=== PATIENT | female | born 1965 | race Caucasian/White ===

== ENCOUNTER 2020-01-21 09:50 | Outpatient (REF) | payer OTHER, SELFPAY ==
[2020-01-21 10:07] LABS: ALT 14 U/L (14-59); AST 14 U/L (15-37); Alkaline Phosphatase 72 U/L (46-116); Anion Gap 7.4 mmol/L (3-11); BUN 6 mg/dL (7-18); Bilirubin, Total 0.3 mg/dL (0.2-1.0); CO2 25.6 mmol/L (21.0-32.0); CREATININE 0.86 mg/dL (0.55-1.02); Calcium 8.4 mg/dL (8.5-10.1); Chloride 106 mmol/L (98-107); Glucose 90 mg/dL (74-106); Potassium 3.6 mmol/L (3.5-5.1); Sodium 139 mmol/L (136-145); Total Protein 6.3 g/dL (6.4-8.2)
== END 2020-01-21 10:10 ==
LOC: LBN 09:50
PROVIDERS: PCP Internal Medicine; Visit Provider Internal Medicine Medical Oncology
DX: C79.51 Secondary malignant neoplasm of bone (principal)
CPT/HCPCS: 80053

== ENCOUNTER 2020-02-18 01:36 | Outpatient (RCR) | payer OTHER, SELFPAY | END 2020-03-04 23:59 | disposition home or self-care (01) | LOC: INF 01:36 | PROVIDERS: PCP Internal Medicine; Visit Provider Internal Medicine Medical Oncology | DX: R69 Illness, unspecified (principal) ==

== ENCOUNTER 2020-02-18 09:28 | Outpatient (REF) | payer OTHER, SELFPAY ==
[2020-02-18 10:01] LABS: ALT 14 U/L (14-59); AST 16 U/L (15-37); Albumin 3.2 g/dL (3.4-5.0); Alkaline Phosphatase 66 U/L (46-116); Anion Gap 7.8 mmol/L (3-11); BUN 5 mg/dL (7-18); Bilirubin, Total 0.3 mg/dL (0.2-1.0); CO2 27.2 mmol/L (21.0-32.0); CREATININE 1.04 mg/dL (0.55-1.02); Calcium 8.9 mg/dL (8.5-10.1); Chloride 107 mmol/L (98-107); Estimated GFR 55.43 (mL/min/1.73m2); Glucose 105 mg/dL (74-106); Sodium 142 mmol/L (136-145); Total Protein 6.5 g/dL (6.4-8.2)
== END 2020-02-18 09:48 ==
LOC: LBN 09:28
PROVIDERS: PCP Internal Medicine; Visit Provider Internal Medicine Medical Oncology
DX: C79.51 Secondary malignant neoplasm of bone (principal)
CPT/HCPCS: 80053

== ENCOUNTER 2020-04-21 01:32 | Outpatient (RCR) | payer OTHER, SELFPAY ==
[2020-04-21 13:26] LABS: Abs Immature Grans 0.01 10^3/uL (0.0-0.06); Absolute Basophil Count 0.04 10^3/uL (0.0-0.2); Absolute Eosinophil Count 0.09 10^3/uL (0.0-0.7); Absolute Lymphocyte Count 1.04 10^3/uL (1.2-3.4); Absolute Monocyte Count 0.27 10^3/uL (0.1-0.8); Absolute Neutrophil Count 3.86 10^3/uL (1.2-6.7); Basophils % 0.8; Eosinophils % 1.7; HCT 36.4 % (36.0-46.0); HGB 12.3 g/dL (11.2-15.7); Immature Grans % 0.2; Lymphocytes % 19.6; MCH 36.7 pg (27.0-33.0); MCHC 33.8 % (32.0-36.0); MCV 108.7 fL (80-95); MPV 10.1 fL (8.0-11.0); Monocytes % 5.1; Neutrophils % 72.6; Nucleated RBC 0 %; Platelet Count 319 10^3/uL (130-400); RBC 3.35 10^6/uL (3.93-5.22); RDW 13.3 % (11.7-14.6); RDW-SD 53.7 fL; WBC 5.31 10^3/uL (4.4-10.8)
[2020-04-21 13:34] LABS: ALT 18 U/L (14-59); AST 26 U/L (15-37); Albumin 3.5 g/dL (3.4-5.0); Alkaline Phosphatase 74 U/L (46-116); Anion Gap 9.3 mmol/L (3-11); BUN 9 mg/dL (7-18); Bilirubin, Total 0.4 mg/dL (0.2-1.0); CO2 24.7 mmol/L (21.0-32.0); CREATININE 1.11 mg/dL (0.55-1.02); Calcium 9.1 mg/dL (8.5-10.1); Chloride 105 mmol/L (98-107); Estimated GFR 51.22 (mL/min/1.73m2); Glucose 122 mg/dL (74-106); Potassium 4.5 mmol/L (3.5-5.1); Sodium 139 mmol/L (136-145); Total Protein 7.1 g/dL (6.4-8.2)
[2020-04-21] MEDS: Normal Saline Flush 10 ML SYR IVP (14:05)
[2020-04-21 14:42] LABS: Diff Comment RBC Morph Reviewed; Macrocytosis 1+
== END 2020-05-05 23:59 | disposition home or self-care (01) ==
LOC: INF 01:32
PROVIDERS: PCP Internal Medicine; Visit Provider Internal Medicine Medical Oncology
DX: C50.812 Malignant neoplasm of overlapping sites of left female breast (principal); Z17.0 Estrogen receptor positive status [ER+]
CPT/HCPCS: 36415; 80053; 86304; 85025; 86300

== ENCOUNTER 2020-06-23 14:20 | Outpatient (CLI) | payer OTHER, SELFPAY ==
[2020-06-23 14:57] LABS: Abs Immature Grans 0.01 10^3/uL (0.0-0.06); Absolute Basophil Count 0.05 10^3/uL (0.0-0.2); Absolute Eosinophil Count 0.08 10^3/uL (0.0-0.7); Absolute Lymphocyte Count 1.12 10^3/uL (1.2-3.4); Absolute Monocyte Count 0.28 10^3/uL (0.1-0.8); Absolute Neutrophil Count 1.94 10^3/uL (1.2-6.7); Basophils % 1.4; Eosinophils % 2.3; HCT 36.3 % (36.0-46.0); HGB 12.3 g/dL (11.2-15.7); Immature Grans % 0.3; Lymphocytes % 32.2; MCH 35.9 pg (27.0-33.0); MCHC 33.9 % (32.0-36.0); MCV 105.8 fL (80-95); MPV 9.2 fL (8.0-11.0); Neutrophils % 55.8; Nucleated RBC 0 %; Platelet Count 251 10^3/uL (130-400); RBC 3.43 10^6/uL (3.93-5.22); RDW 14.3 % (11.7-14.6); RDW-SD 55.3 fL; WBC 3.48 10^3/uL (4.4-10.8)
[2020-06-23 15:11] LABS: Diff Comment RBC Morph Reviewed; Macrocytosis 1+
[2020-06-23 15:13] LABS: ALT 9 U/L (14-59); AST 14 U/L (15-37); Albumin 3.3 g/dL (3.4-5.0); Alkaline Phosphatase 111 U/L (46-116); BUN 6 mg/dL (7-18); Bilirubin, Total 0.4 mg/dL (0.2-1.0); CREATININE 0.81 mg/dL (0.55-1.02); Chloride 105 mmol/L (98-107); Glucose 99 mg/dL (74-106); Sodium 138 mmol/L (136-145); Total Protein 6.8 g/dL (6.4-8.2)
[2020-06-25 10:25] LABS: Cancer Ag 15-3 28 U/mL (<30)
== END 2020-06-23 14:40 ==
PROVIDERS: PCP Internal Medicine; Visit Provider Internal Medicine Medical Oncology
DX: C79.51 Secondary malignant neoplasm of bone (principal)
CPT/HCPCS: 36415; 80053; 86304; 85025; 86300

== ENCOUNTER 2020-07-28 02:46 | Outpatient (RCR) | payer OTHER, SELFPAY ==
[2020-07-28] MEDS: Normal Saline-STERILE FIELD 0.9% 10 ML SYR (13:20)
[2020-07-28 13:48] LABS: Abs Immature Grans 0.02 10^3/uL (0.0-0.06); Absolute Basophil Count 0.04 10^3/uL (0.0-0.2); Absolute Eosinophil Count 0.09 10^3/uL (0.0-0.7); Absolute Lymphocyte Count 1.07 10^3/uL (1.2-3.4); Absolute Monocyte Count 0.29 10^3/uL (0.1-0.8); Absolute Neutrophil Count 3.03 10^3/uL (1.2-6.7); Basophils % 0.9; HCT 37.5 % (36.0-46.0); HGB 12.7 g/dL (11.2-15.7); Immature Grans % 0.4; Lymphocytes % 23.6; MCH 35.6 pg (27.0-33.0); MCHC 33.9 % (32.0-36.0); MPV 9.5 fL (8.0-11.0); Monocytes % 6.4; Neutrophils % 66.7; Nucleated RBC 0 %; Platelet Count 250 10^3/uL (130-400); RBC 3.57 10^6/uL (3.93-5.22); RDW 14.8 % (11.7-14.6); RDW-SD 58.1 fL; WBC 4.54 10^3/uL (4.4-10.8)
[2020-07-28 14:03] LABS: ALT 13 U/L (14-59); AST 16 U/L (15-37); Albumin 3.6 g/dL (3.4-5.0); Alkaline Phosphatase 104 U/L (46-116); Anion Gap 10.5 mmol/L (3-11); BUN 8 mg/dL (7-18); Bilirubin, Total 0.3 mg/dL (0.2-1.0); CO2 24.5 mmol/L (21.0-32.0); CREATININE 1.03 mg/dL (0.55-1.02); Calcium 8.9 mg/dL (8.5-10.1); Chloride 104 mmol/L (98-107); Estimated GFR 55.84 (mL/min/1.73m2); Glucose 137 mg/dL (74-106); Potassium 3.6 mmol/L (3.5-5.1); Sodium 139 mmol/L (136-145); Total Protein 7.5 g/dL (6.4-8.2)
[2020-07-29 16:14] LABS: Cancer Ag 15-3 27 U/mL (<30)
== END 2020-08-04 23:59 | disposition home or self-care (01) ==
LOC: INF 02:46
PROVIDERS: PCP Internal Medicine; Visit Provider Internal Medicine Medical Oncology
DX: C50.812 Malignant neoplasm of overlapping sites of left female breast (principal); Z17.0 Estrogen receptor positive status [ER+]
CPT/HCPCS: 36415; 80053; 86304; 85025; 86300

== ENCOUNTER 2020-08-25 12:59 | Outpatient (RCR) | payer OTHER, SELFPAY ==
[2020-08-25 13:21] LABS: Abs Immature Grans 0.01 10^3/uL (0.0-0.06); Absolute Basophil Count 0.07 10^3/uL (0.0-0.2); Absolute Eosinophil Count 0.09 10^3/uL (0.0-0.7); Absolute Lymphocyte Count 1.32 10^3/uL (1.2-3.4); Absolute Monocyte Count 0.33 10^3/uL (0.1-0.8); Absolute Neutrophil Count 2.31 10^3/uL (1.2-6.7); Basophils % 1.7; Eosinophils % 2.2; HCT 37.1 % (36.0-46.0); HGB 12.5 g/dL (11.2-15.7); Immature Grans % 0.2; MCH 36.2 pg (27.0-33.0); MCHC 33.7 % (32.0-36.0); MCV 107.5 fL (80-95); MPV 9.5 fL (8.0-11.0); Neutrophils % 55.9; Nucleated RBC 0 %; Platelet Count 260 10^3/uL (130-400); RBC 3.45 10^6/uL (3.93-5.22); RDW 15.8 % (11.7-14.6); RDW-SD 62.8 fL; WBC 4.13 10^3/uL (4.4-10.8)
[2020-08-25 13:33] LABS: ALT 12 U/L (14-59); AST 15 U/L (15-37); Albumin 3.6 g/dL (3.4-5.0); Alkaline Phosphatase 97 U/L (46-116); BUN 6 mg/dL (7-18); Bilirubin, Total 0.3 mg/dL (0.2-1.0); CREATININE 1.01 mg/dL (0.55-1.02); Calcium 8.9 mg/dL (8.5-10.1); Chloride 105 mmol/L (98-107); Estimated GFR 57.12 (mL/min/1.73m2); Glucose 145 mg/dL (74-106); Sodium 140 mmol/L (136-145); Total Protein 7.3 g/dL (6.4-8.2)
[2020-08-25 13:42] LABS: Diff Comment Manual Differential; Macrocytosis 1+
[2020-08-26 16:08] LABS: Cancer Ag 15-3 30 U/mL (<30)
== END 2020-09-04 23:59 | disposition home or self-care (01) ==
LOC: INF 12:59
PROVIDERS: PCP Internal Medicine; Referring Provider Internal Medicine Medical Oncology; Visit Provider Internal Medicine Medical Oncology
DX: C50.812 Malignant neoplasm of overlapping sites of left female breast (principal); Z17.1 Estrogen receptor negative status [ER-]
CPT/HCPCS: 36415; 80053; 86304; 85025; 86300

== ENCOUNTER 2020-09-22 01:55 | Outpatient (RCR) | payer OTHER, SELFPAY ==
[2020-09-22 14:20] LABS: Abs Immature Grans 0.01 10^3/uL (0.0-0.06); Absolute Basophil Count 0.05 10^3/uL (0.0-0.2); Absolute Eosinophil Count 0.04 10^3/uL (0.0-0.7); Absolute Lymphocyte Count 1.01 10^3/uL (1.2-3.4); Absolute Monocyte Count 0.26 10^3/uL (0.1-0.8); Absolute Neutrophil Count 2.46 10^3/uL (1.2-6.7); Basophils % 1.3; HCT 35.9 % (36.0-46.0); HGB 12.4 g/dL (11.2-15.7); Immature Grans % 0.3; Lymphocytes % 26.4; MCH 36.9 pg (27.0-33.0); MCHC 34.5 % (32.0-36.0); MCV 106.8 fL (80-95); MPV 9.4 fL (8.0-11.0); Monocytes % 6.8; Neutrophils % 64.2; Nucleated RBC 0 %; Platelet Count 240 10^3/uL (130-400); RBC 3.36 10^6/uL (3.93-5.22); RDW 14.7 % (11.7-14.6); RDW-SD 58.5 fL; WBC 3.83 10^3/uL (4.4-10.8)
[2020-09-22 14:28] LABS: ALT 13 U/L (14-59); AST 14 U/L (15-37); Albumin 3.5 g/dL (3.4-5.0); Alkaline Phosphatase 89 U/L (46-116); BUN 10 mg/dL (7-18); Bilirubin, Total 0.4 mg/dL (0.2-1.0); CREATININE 0.93 mg/dL (0.55-1.02); Calcium 8.9 mg/dL (8.5-10.1); Chloride 103 mmol/L (98-107); Glucose 107 mg/dL (74-106); Potassium 3.8 mmol/L (3.5-5.1); Sodium 136 mmol/L (136-145); Total Protein 7.3 g/dL (6.4-8.2)
[2020-09-22] MEDS: Normal Saline-STERILE FIELD 0.9% 10 ML SYR (14:29)
[2020-09-23 15:14] LABS: Cancer Ag 15-3 30 U/mL (<30)
== END 2020-10-05 23:59 | disposition home or self-care (01) ==
LOC: INF 01:55
PROVIDERS: PCP Internal Medicine; Visit Provider Internal Medicine Medical Oncology
DX: C50.812 Malignant neoplasm of overlapping sites of left female breast (principal); Z17.0 Estrogen receptor positive status [ER+]
CPT/HCPCS: 36415; 80053; 86304; 85025; 86300

== ENCOUNTER 2020-10-21 01:00 | Outpatient (CLI) | payer OTHER, SELFPAY ==
--- NOTE | 2020-10-21 09:58 | DI.RAD_ITS ---
EXAM: XR HUMERUS LT CLINICAL HISTORY: F/U CLOSED FX PROXIMAL END OF HUMERUS,S42.S.COMPARE TO PREV FROM [facility] [place] TECHNIQUE: COMPARISON: DX XR HUMERUS LEFT (GENERIC) from 08/19/2020 FINDINGS: Two views were obtained and show mid humeral fracture with exuberant callus formation, there is a per sistent fracture plane. Alignment appears essentially unchanged comparison with prior radiographs fr om August 19 from [facility]. IMPRESSION: RADIATION DOSE DELIVERED: Total DLP
== END 2020-10-21 01:01 ==
LOC: DI 01:01
PROVIDERS: PCP Internal Medicine; Visit Provider Orthopaedic Surgery
DX: S42.292A Other displaced fracture of upper end of left humerus, initial encounter for closed fracture (principal)
CPT/HCPCS: 73060

== ENCOUNTER 2020-10-27 02:40 | Outpatient (RCR) | payer OTHER, SELFPAY ==
[2020-10-27] MEDS: Normal Saline-STERILE FIELD 0.9% 10 ML SYR (12:59)
[2020-10-27 13:02] LABS: Abs Immature Grans 0.03 10^3/uL (0.0-0.06); Absolute Basophil Count 0.07 10^3/uL (0.0-0.2); Absolute Eosinophil Count 0.07 10^3/uL (0.0-0.7); Absolute Lymphocyte Count 1.07 10^3/uL (1.2-3.4); Absolute Monocyte Count 0.37 10^3/uL (0.1-0.8); Absolute Neutrophil Count 3.07 10^3/uL (1.2-6.7); Basophils % 1.5; Eosinophils % 1.5; HCT 35.6 % (36.0-46.0); HGB 11.9 g/dL (11.2-15.7); Immature Grans % 0.6; Lymphocytes % 22.9; MCH 36.6 pg (27.0-33.0); MCHC 33.4 % (32.0-36.0); MCV 109.5 fL (80-95); MPV 9.8 fL (8.0-11.0); Monocytes % 7.9; Neutrophils % 65.6; Nucleated RBC 0 %; Platelet Count 263 10^3/uL (130-400); RBC 3.25 10^6/uL (3.93-5.22); RDW-SD 60.5 fL; WBC 4.68 10^3/uL (4.4-10.8)
[2020-10-27 13:31] LABS: ALT 14 U/L (14-59); AST 10 U/L (15-37); Albumin 3.4 g/dL (3.4-5.0); Alkaline Phosphatase 76 U/L (46-116); Anion Gap 11.7 mmol/L (3-11); BUN 12 mg/dL (7-18); Bilirubin, Total 0.2 mg/dL (0.2-1.0); CO2 25.3 mmol/L (21.0-32.0); Calcium 9.1 mg/dL (8.5-10.1); Chloride 104 mmol/L (98-107); Estimated GFR 57.78 (mL/min/1.73m2); Glucose 104 mg/dL (74-106); Potassium 3.7 mmol/L (3.5-5.1); Sodium 141 mmol/L (136-145); Total Protein 7.3 g/dL (6.4-8.2)
[2020-10-29 12:36] LABS: Cancer Ag 15-3 26 U/mL (<30)
== END 2020-11-02 23:59 | disposition home or self-care (01) ==
LOC: INF 02:40
PROVIDERS: PCP Internal Medicine; Visit Provider Internal Medicine Medical Oncology
DX: C50.812 Malignant neoplasm of overlapping sites of left female breast (principal); Z17.0 Estrogen receptor positive status [ER+]
CPT/HCPCS: 36415; 80053; 86304; 85025; 86300

== ENCOUNTER 2020-11-24 03:01 | Outpatient (RCR) | payer OTHER, SELFPAY ==
[2020-11-24] MEDS: Normal Saline-STERILE FIELD 0.9% 10 ML SYR (13:08)
[2020-11-24 13:11] LABS: Abs Immature Grans 0.02 10^3/uL (0.0-0.06); Absolute Basophil Count 0.05 10^3/uL (0.0-0.2); Absolute Eosinophil Count 0.07 10^3/uL (0.0-0.7); Absolute Lymphocyte Count 1.31 10^3/uL (1.2-3.4); Absolute Monocyte Count 0.31 10^3/uL (0.1-0.8); Absolute Neutrophil Count 2.22 10^3/uL (1.2-6.7); Basophils % 1.3; Eosinophils % 1.8; HCT 35.1 % (36.0-46.0); Immature Grans % 0.5; Lymphocytes % 32.9; MCH 36.6 pg (27.0-33.0); MCHC 34.2 % (32.0-36.0); Monocytes % 7.8; Neutrophils % 55.7; Nucleated RBC 0 %; Platelet Count 238 10^3/uL (130-400); RBC 3.28 10^6/uL (3.93-5.22); RDW 14.4 % (11.7-14.6); WBC 3.98 10^3/uL (4.4-10.8)
[2020-11-24 13:23] LABS: ALT 15 U/L (14-59); AST 13 U/L (15-37); Albumin 3.6 g/dL (3.4-5.0); Alkaline Phosphatase 85 U/L (46-116); Anion Gap 11.9 mmol/L (3-11); BUN 9 mg/dL (7-18); Bilirubin, Total 0.3 mg/dL (0.2-1.0); CO2 25.1 mmol/L (21.0-32.0); CREATININE 0.9 mg/dL (0.55-1.02); Chloride 106 mmol/L (98-107); Glucose 91 mg/dL (74-106); Potassium 3.6 mmol/L (3.5-5.1); Sodium 143 mmol/L (136-145); Total Protein 7.5 g/dL (6.4-8.2)
[2020-11-24 13:28] LABS: Diff Comment RBC Morph Reviewed; Macrocytosis 1+
[2020-11-25 16:16] LABS: Cancer Ag 15-3 30 U/mL (<30)
== END 2020-12-03 23:59 | disposition home or self-care (01) ==
LOC: INF 03:01
PROVIDERS: PCP Internal Medicine; Visit Provider Internal Medicine Medical Oncology
DX: C50.812 Malignant neoplasm of overlapping sites of left female breast (principal); Z17.0 Estrogen receptor positive status [ER+]
CPT/HCPCS: 36415; 80053; 86304; 85025; 86300

== ENCOUNTER 2020-12-25 03:13 | Outpatient (RCR) | payer OTHER, SELFPAY ==
[2020-12-25] MEDS: Normal Saline-STERILE FIELD 0.9% 10 ML SYR (13:18)
[2020-12-25 13:27] LABS: Absolute Basophil Count 0.06 10^3/uL (0.0-0.2); HCT 32.1 % (36.0-46.0); HGB 10.8 g/dL (11.2-15.7); MCH 36.2 pg (27.0-33.0); MCHC 33.6 % (32.0-36.0); MCV 107.7 fL (80-95); MPV 9.6 fL (8.0-11.0); Nucleated RBC 0 %; RBC 2.98 10^6/uL (3.93-5.22); RDW 15.3 % (11.7-14.6); RDW-SD 60.9 fL; WBC 3.06 10^3/uL (4.4-10.8)
[2020-12-25 13:46] LABS: ALT 14 U/L (14-59); AST 14 U/L (15-37); Albumin 3.6 g/dL (3.4-5.0); Alkaline Phosphatase 60 U/L (46-116); Anion Gap 7.5 mmol/L (3-11); BUN 11 mg/dL (7-18); Bilirubin, Total 0.3 mg/dL (0.2-1.0); CO2 27.5 mmol/L (21.0-32.0); CREATININE 0.9 mg/dL (0.55-1.02); Chloride 108 mmol/L (98-107); Glucose 85 mg/dL (74-106); Potassium 3.6 mmol/L (3.5-5.1); Sodium 143 mmol/L (136-145)
[2020-12-25 14:01] LABS: Absolute Monocyte Count 0.31 10^3/uL (0.1-0.8); Absolute Neutrophil Count 1.87 10^3/uL (1.2-6.7); Atypical Lymphocytes % 4; Bands % 1; Platelet Count 227 10^3/uL (130-400)
[2020-12-25 14:02] LABS: Absolute Eosinophil Count 0.03 10^3/uL (0.0-0.7); Diff Comment Manual Differential; Macrocytosis 2+
[2020-12-26 16:03] LABS: Cancer Ag 15-3 25 U/mL (<30)
== END 2021-01-02 23:59 | disposition home or self-care (01) ==
LOC: INF 03:13
PROVIDERS: PCP Internal Medicine; Visit Provider Internal Medicine Medical Oncology
DX: C50.812 Malignant neoplasm of overlapping sites of left female breast (principal); Z17.0 Estrogen receptor positive status [ER+]
CPT/HCPCS: 36415; 80053; 86304; 85025; 86300

== ENCOUNTER 2021-01-20 09:57 | Outpatient (RCR) | payer OTHER, SELFPAY ==
[2021-01-20] MEDS: Normal Saline-STERILE FIELD 0.9% 10 ML SYR (10:40)
[2021-01-20 10:47] LABS: Abs Immature Grans 0.02 10^3/uL (0.0-0.06); Absolute Basophil Count 0.08 10^3/uL (0.0-0.2); Absolute Eosinophil Count 0.07 10^3/uL (0.0-0.7); Absolute Lymphocyte Count 1.04 10^3/uL (1.2-3.4); Absolute Monocyte Count 0.26 10^3/uL (0.1-0.8); Absolute Neutrophil Count 2.16 10^3/uL (1.2-6.7); Basophils % 2.2; Eosinophils % 1.9; HCT 34.8 % (36.0-46.0); HGB 11.5 g/dL (11.2-15.7); Immature Grans % 0.6; Lymphocytes % 28.7; MCH 35.9 pg (27.0-33.0); MPV 9.9 fL (8.0-11.0); Monocytes % 7.2; Neutrophils % 59.4; Nucleated RBC 0 %; Platelet Count 273 10^3/uL (130-400); RDW 15.2 % (11.7-14.6); RDW-SD 61.3 fL; WBC 3.63 10^3/uL (4.4-10.8)
[2021-01-20 10:50] LABS: MCV 108.8 fL (80-95)
[2021-01-20 11:03] LABS: ALT 13 U/L (14-59); AST 15 U/L (15-37); Albumin 3.6 g/dL (3.4-5.0); Alkaline Phosphatase 72 U/L (46-116); Anion Gap 10.4 mmol/L (3-11); BUN 7 mg/dL (7-18); Bilirubin, Total 0.2 mg/dL (0.2-1.0); CO2 25.6 mmol/L (21.0-32.0); CREATININE 0.9 mg/dL (0.55-1.02); Chloride 107 mmol/L (98-107); Glucose 92 mg/dL (74-106); Potassium 3.5 mmol/L (3.5-5.1); Sodium 143 mmol/L (136-145); Total Protein 7.5 g/dL (6.4-8.2)
[2021-01-21 17:15] LABS: Cancer Ag 15-3 29 U/mL (<30)
== END 2021-02-02 23:59 | disposition home or self-care (01) ==
LOC: INF 09:57
PROVIDERS: PCP Internal Medicine Medical Oncology; Visit Provider Internal Medicine Medical Oncology
DX: C50.812 Malignant neoplasm of overlapping sites of left female breast (principal); Z17.0 Estrogen receptor positive status [ER+]
CPT/HCPCS: 36415; 80053; 86304; 85025; 86300

== ENCOUNTER 2021-02-20 02:55 | Outpatient (CLI) | payer OTHER, SELFPAY ==
[2021-02-20 13:05] LABS: Abs Immature Grans 0.02 10^3/uL (0.0-0.06); Absolute Basophil Count 0.06 10^3/uL (0.0-0.2); Absolute Eosinophil Count 0.08 10^3/uL (0.0-0.7); Absolute Lymphocyte Count 0.91 10^3/uL (1.2-3.4); Absolute Monocyte Count 0.23 10^3/uL (0.1-0.8); Absolute Neutrophil Count 1.74 10^3/uL (1.2-6.7); Eosinophils % 2.6; HCT 36.2 % (36.0-46.0); HGB 12.2 g/dL (11.2-15.7); Immature Grans % 0.7; Lymphocytes % 29.9; MCH 36.2 pg (27.0-33.0); MCHC 33.7 % (32.0-36.0); MCV 107.4 fL (80-95); MPV 8.6 fL (8.0-11.0); Monocytes % 7.6; Neutrophils % 57.2; Nucleated RBC 0 %; Platelet Count 220 10^3/uL (130-400); RBC 3.37 10^6/uL (3.93-5.22); RDW 14.5 % (11.7-14.6); WBC 3.04 10^3/uL (4.4-10.8)
[2021-02-20 13:26] LABS: Diff Comment RBC Morph Reviewed; Macrocytosis 1+
[2021-02-20 14:30] LABS: ALT 14 U/L (14-59); AST 16 U/L (15-37); Albumin 3.6 g/dL (3.4-5.0); Alkaline Phosphatase 65 U/L (46-116); Anion Gap 14.3 mmol/L (3-11); BUN 5 mg/dL (7-18); Bilirubin, Total 0.3 mg/dL (0.2-1.0); CO2 22.7 mmol/L (21.0-32.0); CREATININE 0.8 mg/dL (0.55-1.02); Calcium 8.8 mg/dL (8.5-10.1); Chloride 106 mmol/L (98-107); Glucose 112 mg/dL (74-106); Potassium 3.7 mmol/L (3.5-5.1); Sodium 143 mmol/L (136-145); Total Protein 7.1 g/dL (6.4-8.2)
[2021-02-23 10:47] LABS: Cancer Ag 15-3 29 U/mL (<30)
== END 2021-02-20 02:56 | disposition home or self-care (01) ==
LOC: LBO 02:55
PROVIDERS: PCP Internal Medicine Medical Oncology; Visit Provider Internal Medicine Medical Oncology
DX: C50.812 Malignant neoplasm of overlapping sites of left female breast (principal); Z17.0 Estrogen receptor positive status [ER+]; C79.51 Secondary malignant neoplasm of bone
CPT/HCPCS: 36415; 80053; 86304; 85025; 86300

== ENCOUNTER 2021-03-27 12:57 | Outpatient (CLI) | payer OTHER, SELFPAY ==
[2021-03-27 13:22] LABS: Abs Immature Grans 0.01 10^3/uL (0.0-0.06); Absolute Basophil Count 0.06 10^3/uL (0.0-0.2); Absolute Eosinophil Count 0.03 10^3/uL (0.0-0.7); Absolute Lymphocyte Count 1.07 10^3/uL (1.2-3.4); Absolute Monocyte Count 0.27 10^3/uL (0.1-0.8); Absolute Neutrophil Count 1.37 10^3/uL (1.2-6.7); Basophils % 2.1; Eosinophils % 1.1; HCT 32.7 % (36.0-46.0); HGB 10.9 g/dL (11.2-15.7); Immature Grans % 0.4; Lymphocytes % 38.1; MCH 37.8 pg (27.0-33.0); MCHC 33.3 % (32.0-36.0); MCV 113.5 fL (80-95); MPV 9.7 fL (8.0-11.0); Monocytes % 9.6; Neutrophils % 48.7; Nucleated RBC 0 %; Platelet Count 201 10^3/uL (130-400); RBC 2.88 10^6/uL (3.93-5.22); RDW 16.5 % (11.7-14.6); RDW-SD 69.2 fL; WBC 2.81 10^3/uL (4.4-10.8)
[2021-03-27 13:33] LABS: ALT 15 U/L (14-59); AST 16 U/L (15-37); Albumin 3.6 g/dL (3.4-5.0); Alkaline Phosphatase 49 U/L (46-116); Anion Gap 7.9 mmol/L (3-11); BUN 9 mg/dL (7-18); Bilirubin, Total 0.3 mg/dL (0.2-1.0); CO2 28.1 mmol/L (21.0-32.0); CREATININE 0.8 mg/dL (0.55-1.02); Chloride 107 mmol/L (98-107); Glucose 86 mg/dL (74-106); Potassium 3.6 mmol/L (3.5-5.1); Sodium 143 mmol/L (136-145); Total Protein 7.1 g/dL (6.4-8.2)
[2021-03-27 13:56] LABS: Anisocytosis 1+; Diff Comment Diff Reviewed; Macrocytosis 2+
[2021-03-30 10:38] LABS: Cancer Ag 15-3 31 U/mL (<30)
== END 2021-03-27 12:58 | disposition home or self-care (01) ==
PROVIDERS: PCP Internal Medicine Medical Oncology; Visit Provider Internal Medicine Medical Oncology
DX: C50.812 Malignant neoplasm of overlapping sites of left female breast (principal); Z17.0 Estrogen receptor positive status [ER+]
CPT/HCPCS: 36415; 80053; 86304; 85025; 86300

== ENCOUNTER 2021-04-24 02:16 | Outpatient (CLI) | payer OTHER, SELFPAY ==
[2021-04-24 12:49] LABS: Abs Immature Grans 0.01 10^3/uL (0.0-0.06); Absolute Basophil Count 0.05 10^3/uL (0.0-0.2); Absolute Eosinophil Count 0.06 10^3/uL (0.0-0.7); Absolute Lymphocyte Count 1.31 10^3/uL (1.2-3.4); Absolute Monocyte Count 0.31 10^3/uL (0.1-0.8); Absolute Neutrophil Count 1.68 10^3/uL (1.2-6.7); Basophils % 1.5; Eosinophils % 1.8; HCT 32.1 % (36.0-46.0); Immature Grans % 0.3; Lymphocytes % 38.3; MCH 37.8 pg (27.0-33.0); MCHC 34.3 % (32.0-36.0); MCV 110.3 fL (80-95); MPV 9.9 fL (8.0-11.0); Monocytes % 9.1; Nucleated RBC 0 %; Platelet Count 199 10^3/uL (130-400); RBC 2.91 10^6/uL (3.93-5.22); RDW 15.5 % (11.7-14.6); RDW-SD 62.8 fL; WBC 3.42 10^3/uL (4.4-10.8)
[2021-04-24 13:10] LABS: ALT 15 U/L (14-59); AST 20 U/L (15-37); Albumin 3.7 g/dL (3.4-5.0); Alkaline Phosphatase 63 U/L (46-116); BUN 6 mg/dL (7-18); Bilirubin, Total 0.4 mg/dL (0.2-1.0); CREATININE 0.9 mg/dL (0.55-1.02); Calcium 9.2 mg/dL (8.5-10.1); Chloride 107 mmol/L (98-107); Glucose 90 mg/dL (74-106); Potassium 3.3 mmol/L (3.5-5.1); Total Protein 7.1 g/dL (6.4-8.2)
[2021-04-24 13:39] LABS: Sodium 142 mmol/L (136-145)
[2021-04-24 13:40] LABS: Anion Gap 9.1 mmol/L (3-11); CO2 25.9 mmol/L (21.0-32.0)
[2021-04-27 14:09] LABS: Cancer Ag 15-3 32 U/mL (<30)
== END 2021-04-24 02:17 | disposition home or self-care (01) ==
LOC: LBO 02:17
PROVIDERS: PCP Internal Medicine Medical Oncology; Visit Provider Internal Medicine Medical Oncology
DX: C50.812 Malignant neoplasm of overlapping sites of left female breast (principal); C79.51 Secondary malignant neoplasm of bone; Z17.0 Estrogen receptor positive status [ER+]
CPT/HCPCS: 36415; 80053; 86304; 85025; 86300

== ENCOUNTER 2021-07-10 03:48 | Outpatient (CLI) | payer OTHER, SELFPAY ==
[2021-07-10 12:43] LABS: Abs Immature Grans 0.02 10^3/uL (0.0-0.06); Absolute Basophil Count 0.07 10^3/uL (0.0-0.2); Absolute Eosinophil Count 0.09 10^3/uL (0.0-0.7); Absolute Lymphocyte Count 1.27 10^3/uL (1.2-3.4); Absolute Monocyte Count 0.31 10^3/uL (0.1-0.8); Absolute Neutrophil Count 2.15 10^3/uL (1.2-6.7); Basophils % 1.8; Eosinophils % 2.3; HCT 35.5 % (36.0-46.0); HGB 11.9 g/dL (11.2-15.7); Immature Grans % 0.5; Lymphocytes % 32.5; MCH 37.4 pg (27.0-33.0); MCHC 33.5 % (32.0-36.0); MCV 111.6 fL (80-95); MPV 9.4 fL (8.0-11.0); Monocytes % 7.9; Nucleated RBC 0 %; Platelet Count 234 10^3/uL (130-400); RBC 3.18 10^6/uL (3.93-5.22); WBC 3.91 10^3/uL (4.4-10.8)
[2021-07-10 12:56] LABS: ALT 18 U/L (14-59); AST 20 U/L (15-37); Albumin 3.8 g/dL (3.4-5.0); Alkaline Phosphatase 70 U/L (46-116); Anion Gap 8.3 mmol/L (3-11); BUN 12 mg/dL (7-18); Bilirubin, Total 0.4 mg/dL (0.2-1.0); CO2 27.7 mmol/L (21.0-32.0); Calcium 9.2 mg/dL (8.5-10.1); Chloride 106 mmol/L (98-107); Estimated GFR 57.56 (mL/min/1.73m2); Glucose 133 mg/dL (74-106); Potassium 3.6 mmol/L (3.5-5.1); Sodium 142 mmol/L (136-145); Total Protein 7.7 g/dL (6.4-8.2)
[2021-07-14 10:56] LABS: Cancer Ag 15-3 32 U/mL (<30)
== END 2021-07-10 03:49 | disposition home or self-care (01) ==
LOC: LBO 03:48
PROVIDERS: PCP Internal Medicine Medical Oncology; Visit Provider Internal Medicine Medical Oncology
DX: C50.812 Malignant neoplasm of overlapping sites of left female breast (principal); C79.51 Secondary malignant neoplasm of bone; Z17.0 Estrogen receptor positive status [ER+]
CPT/HCPCS: 36415; 80053; 86304; 85025; 86300

== ENCOUNTER 2021-08-07 02:21 | Outpatient (CLI) | payer OTHER, SELFPAY ==
[2021-08-07 12:54] LABS: Abs Immature Grans 0.01 10^3/uL (0.0-0.06); Absolute Basophil Count 0.07 10^3/uL (0.0-0.2); Absolute Eosinophil Count 0.07 10^3/uL (0.0-0.7); Absolute Monocyte Count 0.28 10^3/uL (0.1-0.8); Absolute Neutrophil Count 1.73 10^3/uL (1.2-6.7); Basophils % 2.1; Eosinophils % 2.1; Immature Grans % 0.3; Lymphocytes % 35.7; MCH 36.8 pg (27.0-33.0); MCHC 33.3 % (32.0-36.0); MCV 110.4 fL (80-95); MPV 9.3 fL (8.0-11.0); Monocytes % 8.3; Neutrophils % 51.5; Nucleated RBC 0 %; Platelet Count 195 10^3/uL (130-400); RBC 3.26 10^6/uL (3.93-5.22); RDW 13.4 % (11.7-14.6); RDW-SD 54.4 fL; WBC 3.36 10^3/uL (4.4-10.8)
[2021-08-07 13:36] LABS: ALT 16 U/L (14-59); AST 19 U/L (15-37); Albumin 3.8 g/dL (3.4-5.0); Alkaline Phosphatase 70 U/L (46-116); Anion Gap 10.4 mmol/L (3-11); BUN 9 mg/dL (7-18); Bilirubin, Total 0.4 mg/dL (0.2-1.0); CO2 25.6 mmol/L (21.0-32.0); CREATININE 0.8 mg/dL (0.55-1.02); Calcium 8.9 mg/dL (8.5-10.1); Chloride 104 mmol/L (98-107); Glucose 98 mg/dL (74-106); Potassium 3.6 mmol/L (3.5-5.1); Sodium 140 mmol/L (136-145); Total Protein 7.7 g/dL (6.4-8.2)
[2021-08-08 12:03] LABS: Cancer Ag 15-3 34 U/mL (<30)
== END 2021-08-07 02:22 | disposition home or self-care (01) ==
LOC: LBO 02:22
PROVIDERS: PCP Internal Medicine Medical Oncology; Visit Provider Internal Medicine Medical Oncology
DX: C50.812 Malignant neoplasm of overlapping sites of left female breast (principal); C79.51 Secondary malignant neoplasm of bone
CPT/HCPCS: 36415; 80053; 86304; 85025; 86300

== ENCOUNTER 2021-09-16 16:40 | Outpatient (CLI) | payer OTHER, SELFPAY ==
[2021-09-16 12:46] LABS: Abs Immature Grans 0.02 10^3/uL (0.0-0.06); Absolute Basophil Count 0.08 10^3/uL (0.0-0.2); Absolute Eosinophil Count 0.04 10^3/uL (0.0-0.7); Absolute Lymphocyte Count 1.14 10^3/uL (1.2-3.4); Absolute Monocyte Count 0.27 10^3/uL (0.1-0.8); Absolute Neutrophil Count 1.96 10^3/uL (1.2-6.7); Basophils % 2.3; Eosinophils % 1.1; HCT 37.3 % (36.0-46.0); HGB 12.4 g/dL (11.2-15.7); Immature Grans % 0.6; Lymphocytes % 32.5; MCH 36.3 pg (27.0-33.0); MCHC 33.2 % (32.0-36.0); MCV 109.1 fL (80-95); MPV 9.4 fL (8.0-11.0); Monocytes % 7.7; Neutrophils % 55.8; Nucleated RBC 0 %; Platelet Count 227 10^3/uL (130-400); RBC 3.42 10^6/uL (3.93-5.22); RDW 13.5 % (11.7-14.6); RDW-SD 54.2 fL; WBC 3.51 10^3/uL (4.4-10.8)
[2021-09-16 13:01] LABS: ALT 16 U/L (14-59); AST 16 U/L (15-37); Albumin 3.8 g/dL (3.4-5.0); Alkaline Phosphatase 73 U/L (46-116); Anion Gap 8.9 mmol/L (3-11); BUN 11 mg/dL (7-18); Bilirubin, Total 0.3 mg/dL (0.2-1.0); CO2 28.1 mmol/L (21.0-32.0); Chloride 102 mmol/L (98-107); Estimated GFR 57.56 (mL/min/1.73m2); Glucose 100 mg/dL (74-106); Potassium 3.9 mmol/L (3.5-5.1); Sodium 139 mmol/L (136-145); Total Protein 7.8 g/dL (6.4-8.2)
[2021-09-16 13:05] LABS: Calcium 9.5 mg/dL (8.5-10.1)
[2021-09-18 10:20] LABS: Cancer Ag 15-3 35 U/mL (<30)
== END 2021-09-16 16:41 | disposition home or self-care (01) ==
LOC: LBO 16:40
PROVIDERS: PCP Internal Medicine Medical Oncology; Visit Provider Internal Medicine Medical Oncology
DX: C50.812 Malignant neoplasm of overlapping sites of left female breast (principal); C79.51 Secondary malignant neoplasm of bone
CPT/HCPCS: 36415; 80053; 86304; 85025; 86300

== ENCOUNTER 2021-11-12 02:31 | Outpatient (CLI) | payer OTHER, SELFPAY ==
[2021-11-12 12:42] LABS: Absolute Basophil Count 0.06 10^3/uL (0.0-0.2); Absolute Eosinophil Count 0.06 10^3/uL (0.0-0.7); Absolute Lymphocyte Count 1.15 10^3/uL (1.2-3.4); Absolute Monocyte Count 0.27 10^3/uL (0.1-0.8); Basophils % 1.9; Eosinophils % 1.9; HGB 10.9 g/dL (11.2-15.7); Lymphocytes % 36.6; MCH 36.3 pg (27.0-33.0); MPV 9.3 fL (8.0-11.0); Monocytes % 8.6; Nucleated RBC 0 %; Platelet Count 202 10^3/uL (130-400); RDW 13.2 % (11.7-14.6); RDW-SD 53.8 fL; WBC 3.14 10^3/uL (4.4-10.8)
[2021-11-12 13:03] LABS: ALT 13 U/L (14-59); AST 16 U/L (15-37); Albumin 3.7 g/dL (3.4-5.0); Alkaline Phosphatase 74 U/L (46-116); Anion Gap 9.3 mmol/L (3-11); BUN 7 mg/dL (7-18); Bilirubin, Total 0.2 mg/dL (0.2-1.0); CO2 26.7 mmol/L (21.0-32.0); CREATININE 0.9 mg/dL (0.55-1.02); Calcium 9.3 mg/dL (8.5-10.1); Chloride 105 mmol/L (98-107); Glucose 113 mg/dL (74-106); Potassium 3.5 mmol/L (3.5-5.1); Sodium 141 mmol/L (136-145); Total Protein 7.3 g/dL (6.4-8.2)
[2021-11-13 14:32] LABS: Cancer Ag 15-3 30 U/mL (<30)
== END 2021-11-12 02:32 | disposition home or self-care (01) ==
PROVIDERS: PCP Internal Medicine Medical Oncology; Visit Provider Internal Medicine Medical Oncology
DX: C50.812 Malignant neoplasm of overlapping sites of left female breast (principal); C79.51 Secondary malignant neoplasm of bone
CPT/HCPCS: 36415; 80053; 86304; 85025; 86300

== ENCOUNTER 2021-12-11 02:52 | Outpatient (CLI) | payer OTHER, SELFPAY ==
[2021-12-11 14:04] LABS: ALT 17 U/L (14-59); AST 16 U/L (15-37); Albumin 3.6 g/dL (3.4-5.0); Alkaline Phosphatase 77 U/L (46-116); BUN 13 mg/dL (7-18); Bilirubin, Total 0.2 mg/dL (0.2-1.0); Calcium 9.1 mg/dL (8.5-10.1); Chloride 106 mmol/L (98-107); Estimated GFR 57.56 (mL/min/1.73m2); Glucose 122 mg/dL (74-106); Potassium 3.6 mmol/L (3.5-5.1); Sodium 140 mmol/L (136-145); Total Protein 7.4 g/dL (6.4-8.2)
[2021-12-14 12:19] LABS: Cancer Ag 15-3 32 U/mL (<30)
== END 2021-12-11 02:53 | disposition home or self-care (01) ==
LOC: LBO 02:52
PROVIDERS: PCP Internal Medicine Medical Oncology; Visit Provider Internal Medicine Medical Oncology
DX: C50.812 Malignant neoplasm of overlapping sites of left female breast (principal); C79.51 Secondary malignant neoplasm of bone; M79.604 Pain in right leg; Z17.0 Estrogen receptor positive status [ER+]
CPT/HCPCS: 36415; 80053; 86304; 86300

== ENCOUNTER 2022-01-07 03:43 | Outpatient (CLI) | payer OTHER, SELFPAY ==
[2022-01-07 13:23] LABS: Abs Immature Grans 0.02 10^3/uL (0.0-0.06); Absolute Basophil Count 0.07 10^3/uL (0.0-0.2); Absolute Eosinophil Count 0.07 10^3/uL (0.0-0.7); Absolute Lymphocyte Count 1.32 10^3/uL (1.2-3.4); Absolute Monocyte Count 0.33 10^3/uL (0.1-0.8); Absolute Neutrophil Count 1.42 10^3/uL (1.2-6.7); Basophils % 2.2; Eosinophils % 2.2; HCT 33.7 % (36.0-46.0); HGB 11.1 g/dL (11.2-15.7); Immature Grans % 0.6; Lymphocytes % 40.9; MCH 35.8 pg (27.0-33.0); MCHC 32.9 % (32.0-36.0); MCV 109 fL (80-95); MPV 9.3 fL (8.0-11.0); Monocytes % 10.2; Neutrophils % 43.9; Platelet Count 198 10^3/uL (130-400); RDW 13.9 % (11.7-14.6); RDW-SD 55.4 fL; WBC 3.23 10^3/uL (4.4-10.8)
[2022-01-07 13:32] LABS: Diff Comment RBC Morph Reviewed
[2022-01-07 13:34] LABS: Macrocytosis 1+
[2022-01-07 13:36] LABS: ALT 14 U/L (14-59); AST 18 U/L (15-37); Albumin 3.5 g/dL (3.4-5.0); Alkaline Phosphatase 85 U/L (46-116); Anion Gap 6.4 mmol/L (3-11); BUN 11 mg/dL (7-18); Bilirubin, Total 0.3 mg/dL (0.2-1.0); CO2 27.6 mmol/L (21.0-32.0); CREATININE 0.9 mg/dL (0.55-1.02); Calcium 8.7 mg/dL (8.5-10.1); Chloride 106 mmol/L (98-107); Glucose 90 mg/dL (74-106); Potassium 3.7 mmol/L (3.5-5.1); Sodium 140 mmol/L (136-145); Total Protein 7.1 g/dL (6.4-8.2)
[2022-01-08 12:26] LABS: Cancer Ag 15-3 32 U/mL (<30)
== END 2022-01-07 03:44 | disposition home or self-care (01) ==
LOC: LBO 03:43
PROVIDERS: PCP Internal Medicine Medical Oncology; Visit Provider Internal Medicine Medical Oncology
DX: C50.812 Malignant neoplasm of overlapping sites of left female breast (principal); Z17.0 Estrogen receptor positive status [ER+]
CPT/HCPCS: 36415; 80053; 86304; 85025; 86300

== ENCOUNTER 2022-02-04 02:55 | Outpatient (CLI) | payer OTHER, SELFPAY ==
[2022-02-04 13:37] LABS: Abs Immature Grans 0.02 10^3/uL (0.0-0.06); Absolute Basophil Count 0.06 10^3/uL (0.0-0.2); Absolute Eosinophil Count 0.09 10^3/uL (0.0-0.7); Absolute Monocyte Count 0.26 10^3/uL (0.1-0.8); Absolute Neutrophil Count 1.72 10^3/uL (1.2-6.7); Basophils % 1.7; Eosinophils % 2.6; HCT 34.5 % (36.0-46.0); HGB 11.5 g/dL (11.2-15.7); Immature Grans % 0.6; Lymphocytes % 37.7; MCH 36.1 pg (27.0-33.0); MCHC 33.3 % (32.0-36.0); MCV 108 fL (80-95); MPV 9.6 fL (8.0-11.0); Monocytes % 7.5; Neutrophils % 49.9; Platelet Count 199 10^3/uL (130-400); RBC 3.19 10^6/uL (3.93-5.22); RDW 14.4 % (11.7-14.6); RDW-SD 57.3 fL; WBC 3.45 10^3/uL (4.4-10.8)
[2022-02-04 13:56] LABS: ALT 18 U/L (14-59); AST 19 U/L (15-37); Albumin 3.5 g/dL (3.4-5.0); Alkaline Phosphatase 80 U/L (46-116); Anion Gap 10.7 mmol/L (3-11); BUN 6 mg/dL (7-18); Bilirubin, Total 0.4 mg/dL (0.2-1.0); CO2 27.3 mmol/L (21.0-32.0); CREATININE 0.9 mg/dL (0.55-1.02); Calcium 8.7 mg/dL (8.5-10.1); Chloride 105 mmol/L (98-107); Glucose 134 mg/dL (74-106); Potassium 3.5 mmol/L (3.5-5.1); Sodium 143 mmol/L (136-145); Total Protein 7.2 g/dL (6.4-8.2)
[2022-02-05 16:40] LABS: Cancer Ag 15-3 33 U/mL (<30)
== END 2022-02-04 02:56 | disposition home or self-care (01) ==
LOC: LBO 02:55
PROVIDERS: PCP Internal Medicine Medical Oncology; Visit Provider Internal Medicine Medical Oncology
DX: C50.812 Malignant neoplasm of overlapping sites of left female breast (principal); Z17.0 Estrogen receptor positive status [ER+]; C79.51 Secondary malignant neoplasm of bone; M79.604 Pain in right leg
CPT/HCPCS: 36415; 80053; 86304; 85025; 86300

== ENCOUNTER 2022-03-04 02:16 | Outpatient (CLI) | payer OTHER, SELFPAY ==
[2022-03-04 13:31] LABS: Abs Immature Grans 0.01 10^3/uL (0.0-0.06); Absolute Basophil Count 0.06 10^3/uL (0.0-0.2); Absolute Eosinophil Count 0.08 10^3/uL (0.0-0.7); Absolute Lymphocyte Count 1.21 10^3/uL (1.2-3.4); Absolute Monocyte Count 0.34 10^3/uL (0.1-0.8); Absolute Neutrophil Count 1.58 10^3/uL (1.2-6.7); Basophils % 1.8; Eosinophils % 2.4; HCT 33.1 % (36.0-46.0); HGB 11.1 g/dL (11.2-15.7); Immature Grans % 0.3; Lymphocytes % 36.9; MCH 36.9 pg (27.0-33.0); MCHC 33.5 % (32.0-36.0); MCV 110 fL (80-95); Monocytes % 10.4; Neutrophils % 48.2; Platelet Count 213 10^3/uL (130-400); RBC 3.01 10^6/uL (3.93-5.22); RDW 14.5 % (11.7-14.6); RDW-SD 59.2 fL; WBC 3.28 10^3/uL (4.4-10.8)
[2022-03-04 14:05] LABS: Diff Comment RBC Morph Reviewed; Macrocytosis 2+
[2022-03-04 14:07] LABS: ALT 18 U/L (14-59); AST 16 U/L (15-37); Albumin 3.7 g/dL (3.4-5.0); Alkaline Phosphatase 92 U/L (46-116); Anion Gap 8.7 mmol/L (3-11); BUN 6 mg/dL (7-18); Bilirubin, Total 0.4 mg/dL (0.2-1.0); CO2 26.3 mmol/L (21.0-32.0); CREATININE 0.7 mg/dL (0.55-1.02); Calcium 9.2 mg/dL (8.5-10.1); Chloride 104 mmol/L (98-107); Glucose 94 mg/dL (74-106); Potassium 3.5 mmol/L (3.5-5.1); Sodium 139 mmol/L (136-145); Total Protein 7.7 g/dL (6.4-8.2)
[2022-03-06 13:35] LABS: Cancer Ag 15-3 37 U/mL (<30)
== END 2022-03-04 02:17 | disposition home or self-care (01) ==
LOC: LBO 02:16
PROVIDERS: PCP Internal Medicine Medical Oncology; Visit Provider Internal Medicine Medical Oncology
DX: C50.812 Malignant neoplasm of overlapping sites of left female breast (principal); Z17.0 Estrogen receptor positive status [ER+]
CPT/HCPCS: 36415; 80053; 86304; 85025; 86300

== ENCOUNTER 2022-04-01 03:09 | Outpatient (CLI) | payer OTHER, SELFPAY ==
[2022-04-01 13:04] LABS: Abs Immature Grans 0.01 10^3/uL (0.0-0.06); Absolute Basophil Count 0.05 10^3/uL (0.0-0.2); Absolute Eosinophil Count 0.08 10^3/uL (0.0-0.7); Absolute Lymphocyte Count 1.24 10^3/uL (1.2-3.4); Absolute Monocyte Count 0.36 10^3/uL (0.1-0.8); Absolute Neutrophil Count 2.67 10^3/uL (1.2-6.7); Basophils % 1.1; Eosinophils % 1.8; HCT 33.4 % (36.0-46.0); HGB 11.2 g/dL (11.2-15.7); Immature Grans % 0.2; Lymphocytes % 28.1; MCHC 33.5 % (32.0-36.0); MCV 110 fL (80-95); Monocytes % 8.2; Neutrophils % 60.6; Platelet Count 257 10^3/uL (130-400); RBC 3.03 10^6/uL (3.93-5.22); RDW 13.2 % (11.7-14.6); RDW-SD 53.4 fL; WBC 4.41 10^3/uL (4.4-10.8)
[2022-04-01 13:54] LABS: ALT 15 U/L (14-59); AST 16 U/L (15-37); Albumin 3.3 g/dL (3.4-5.0); Alkaline Phosphatase 95 U/L (46-116); Anion Gap 11.2 mmol/L (3-11); BUN 10 mg/dL (7-18); Bilirubin, Total 0.2 mg/dL (0.2-1.0); CO2 23.8 mmol/L (21.0-32.0); Calcium 9.2 mg/dL (8.5-10.1); Chloride 104 mmol/L (98-107); Estimated GFR 57.35 (mL/min/1.73m2); Glucose 91 mg/dL (74-106); Sodium 139 mmol/L (136-145); Total Protein 7.3 g/dL (6.4-8.2); Vitamin B12 100 pg/mL (193-986); Vitamin D 25 Total 24.3 ng/mL (30-100)
[2022-04-01 23:38] LABS: Parathyroid Hormone,Intact 53 pg/mL (19-88)
[2022-04-03 12:09] LABS: Cancer Ag 15-3 33 U/mL (<30)
== END 2022-04-01 03:10 | disposition home or self-care (01) ==
LOC: LBO 03:09
PROVIDERS: PCP Internal Medicine Medical Oncology; Visit Provider Internal Medicine Medical Oncology
DX: C50.812 Malignant neoplasm of overlapping sites of left female breast (principal); Z17.0 Estrogen receptor positive status [ER+]; E83.10 Disorder of iron metabolism, unspecified; Z98.84 Bariatric surgery status
CPT/HCPCS: 36415; 80053; 82306; 86304; 82607; 83970; 85025; 86300

== ENCOUNTER 2022-04-29 03:03 | Outpatient (CLI) | payer OTHER, SELFPAY ==
[2022-04-29 12:46] LABS: Absolute Basophil Count 0.09 10^3/uL (0.0-0.2); Absolute Eosinophil Count 0.08 10^3/uL (0.0-0.7); Absolute Lymphocyte Count 1.19 10^3/uL (1.2-3.4); Absolute Monocyte Count 0.33 10^3/uL (0.1-0.8); Absolute Neutrophil Count 1.97 10^3/uL (1.2-6.7); Basophils % 2.5; Eosinophils % 2.2; HCT 33.8 % (36.0-46.0); HGB 11.1 g/dL (11.2-15.7); Lymphocytes % 32.5; MCH 35.4 pg (27.0-33.0); MCHC 32.8 % (32.0-36.0); MCV 108 fL (80-95); MPV 9.4 fL (8.0-11.0); Neutrophils % 53.8; Platelet Count 226 10^3/uL (130-400); RBC 3.14 10^6/uL (3.93-5.22); RDW 12.4 % (11.7-14.6); RDW-SD 49.5 fL; WBC 3.66 10^3/uL (4.4-10.8)
[2022-04-29 13:01] LABS: ALT 14 U/L (14-59); AST 19 U/L (15-37); Albumin 3.2 g/dL (3.4-5.0); Alkaline Phosphatase 82 U/L (46-116); Anion Gap 5.6 mmol/L (3-11); BUN 9 mg/dL (7-18); Bilirubin, Total 0.1 mg/dL (0.2-1.0); CO2 30.4 mmol/L (21.0-32.0); Calcium 8.7 mg/dL (8.5-10.1); Chloride 106 mmol/L (98-107); Estimated GFR 57.35 (mL/min/1.73m2); Glucose 94 mg/dL (74-106); Sodium 142 mmol/L (136-145); Total Protein 7.2 g/dL (6.4-8.2)
[2022-04-30 16:03] LABS: Cancer Ag 15-3 32 U/mL (<30)
== END 2022-04-29 03:04 | disposition home or self-care (01) ==
LOC: LBO 03:03
PROVIDERS: PCP Internal Medicine Medical Oncology; Visit Provider Internal Medicine Medical Oncology
DX: C50.812 Malignant neoplasm of overlapping sites of left female breast (principal)
CPT/HCPCS: 36415; 80053; 86304; 85025; 86300

== ENCOUNTER 2022-05-27 03:48 | Outpatient (CLI) | payer OTHER, SELFPAY ==
[2022-05-27 13:27] LABS: Abs Immature Grans 0.02 10^3/uL (0.0-0.06); Absolute Basophil Count 0.05 10^3/uL (0.0-0.2); Absolute Eosinophil Count 0.06 10^3/uL (0.0-0.7); Absolute Lymphocyte Count 1.36 10^3/uL (1.2-3.4); Absolute Monocyte Count 0.41 10^3/uL (0.1-0.8); Absolute Neutrophil Count 2.24 10^3/uL (1.2-6.7); Basophils % 1.2; Eosinophils % 1.4; HCT 33.7 % (36.0-46.0); HGB 11.3 g/dL (11.2-15.7); Immature Grans % 0.5; Lymphocytes % 32.9; MCH 34.8 pg (27.0-33.0); MCHC 33.5 % (32.0-36.0); MCV 104 fL (80-95); MPV 9.2 fL (8.0-11.0); Monocytes % 9.9; Neutrophils % 54.1; Platelet Count 220 10^3/uL (130-400); RBC 3.25 10^6/uL (3.93-5.22); RDW 13.6 % (11.7-14.6); RDW-SD 52.1 fL; WBC 4.14 10^3/uL (4.4-10.8)
[2022-05-27 13:46] LABS: ALT 15 U/L (14-59); AST 23 U/L (15-37); Albumin 3.2 g/dL (3.4-5.0); Alkaline Phosphatase 89 U/L (46-116); Anion Gap 8.4 mmol/L (3-11); BUN 9 mg/dL (7-18); Bilirubin, Total 0.2 mg/dL (0.2-1.0); CO2 26.6 mmol/L (21.0-32.0); CREATININE 0.8 mg/dL (0.55-1.02); Calcium 8.5 mg/dL (8.5-10.1); Chloride 98 mmol/L (98-107); Estimated GFR 86.42 (mL/min/1.73m2); Glucose 115 mg/dL (74-106); Potassium 3.4 mmol/L (3.5-5.1); Sodium 133 mmol/L (136-145); Total Protein 7.3 g/dL (6.4-8.2)
[2022-05-28 15:06] LABS: Cancer Ag 15-3 33 U/mL (<30)
== END 2022-05-27 03:49 | disposition home or self-care (01) ==
LOC: LBO 03:48
PROVIDERS: PCP Internal Medicine Medical Oncology; Visit Provider Internal Medicine Medical Oncology
DX: C50.812 Malignant neoplasm of overlapping sites of left female breast (principal); Z17.0 Estrogen receptor positive status [ER+]
CPT/HCPCS: 36415; 80053; 86304; 85025; 86300

== ENCOUNTER 2022-09-16 13:40 | Outpatient (CLI) | payer OTHER, SELFPAY ==
[2022-09-16 12:37] LABS: Abs Immature Grans 0.01 10^3/uL (0.0-0.06); Absolute Basophil Count 0.08 10^3/uL (0.0-0.2); Absolute Eosinophil Count 0.05 10^3/uL (0.0-0.7); Absolute Lymphocyte Count 1.15 10^3/uL (1.2-3.4); Absolute Monocyte Count 0.26 10^3/uL (0.1-0.8); Absolute Neutrophil Count 2.06 10^3/uL (1.2-6.7); Basophils % 2.2; Eosinophils % 1.4; HCT 33.9 % (36.0-46.0); HGB 11.2 g/dL (11.2-15.7); Immature Grans % 0.3; Lymphocytes % 31.9; MCH 33.7 pg (27.0-33.0); MCV 102 fL (80-95); MPV 9.2 fL (8.0-11.0); Monocytes % 7.2; Platelet Count 230 10^3/uL (130-400); RBC 3.32 10^6/uL (3.93-5.22); WBC 3.61 10^3/uL (4.4-10.8)
[2022-09-16 13:01] LABS: ALT 12 U/L (14-59); AST 19 U/L (15-37); Albumin 3.5 g/dL (3.4-5.0); Alkaline Phosphatase 77 U/L (46-116); Anion Gap 11.3 mmol/L (3-11); BUN 9 mg/dL (7-18); Bilirubin, Total 0.2 mg/dL (0.2-1.0); CO2 23.7 mmol/L (21.0-32.0); Chloride 104 mmol/L (98-107); Estimated GFR 66.12 (mL/min/1.73m2); Glucose 80 mg/dL (74-106); Potassium 3.5 mmol/L (3.5-5.1); Sodium 139 mmol/L (136-145); Total Protein 7.4 g/dL (6.4-8.2)
[2022-09-17 19:56] LABS: Cancer Ag 15-3 34 U/mL (<30)
== END 2022-09-16 13:41 | disposition home or self-care (01) ==
LOC: LBO 13:41
PROVIDERS: PCP Internal Medicine Medical Oncology; Visit Provider Internal Medicine Medical Oncology
DX: C50.812 Malignant neoplasm of overlapping sites of left female breast (principal); Z17.0 Estrogen receptor positive status [ER+]
CPT/HCPCS: 36415; 80053; 86304; 85025; 86300

== ENCOUNTER 2022-10-14 12:47 | Outpatient (CLI) | payer OTHER, SELFPAY ==
[2022-10-14 12:20] LABS: Abs Immature Grans 0.01 10^3/uL (0.0-0.06); Absolute Basophil Count 0.06 10^3/uL (0.0-0.2); Absolute Eosinophil Count 0.07 10^3/uL (0.0-0.7); Absolute Lymphocyte Count 1.46 10^3/uL (1.2-3.4); Absolute Monocyte Count 0.28 10^3/uL (0.1-0.8); Absolute Neutrophil Count 1.09 10^3/uL (1.2-6.7); Eosinophils % 2.4; HCT 33.9 % (36.0-46.0); HGB 11.3 g/dL (11.2-15.7); Immature Grans % 0.3; Lymphocytes % 49.2; MCHC 33.3 % (32.0-36.0); MCV 102 fL (80-95); MPV 9.7 fL (8.0-11.0); Monocytes % 9.4; Neutrophils % 36.7; Platelet Count 198 10^3/uL (130-400); RBC 3.32 10^6/uL (3.93-5.22); RDW 16.4 % (11.7-14.6); RDW-SD 62.2 fL; WBC 2.97 10^3/uL (4.4-10.8)
[2022-10-14 12:35] LABS: ALT 13 U/L (14-59); AST 24 U/L (15-37); Albumin 3.4 g/dL (3.4-5.0); Alkaline Phosphatase 82 U/L (46-116); Anion Gap 13.2 mmol/L (3-11); BUN 8 mg/dL (7-18); Bilirubin, Total 0.3 mg/dL (0.2-1.0); CO2 21.8 mmol/L (21.0-32.0); CREATININE 0.8 mg/dL (0.55-1.02); Calcium 9.1 mg/dL (8.5-10.1); Chloride 99 mmol/L (98-107); Estimated GFR 86.42 (mL/min/1.73m2); Glucose 109 mg/dL (74-106); Potassium 3.4 mmol/L (3.5-5.1); Sodium 134 mmol/L (136-145); Total Protein 7.3 g/dL (6.4-8.2)
[2022-10-18 12:06] LABS: Cancer Ag 15-3 37 U/mL (<30)
== END 2022-10-14 12:48 | disposition home or self-care (01) ==
LOC: LBO 12:48
PROVIDERS: PCP Internal Medicine Medical Oncology; Visit Provider Internal Medicine Medical Oncology
DX: C50.812 Malignant neoplasm of overlapping sites of left female breast (principal)
CPT/HCPCS: 36415; 80053; 86304; 85025; 86300

== ENCOUNTER 2022-11-11 13:17 | Outpatient (CLI) | payer OTHER, SELFPAY ==
[2022-11-11 12:12] LABS: Abs Immature Grans 0.02 10^3/uL (0.0-0.06); Absolute Basophil Count 0.06 10^3/uL (0.0-0.2); Absolute Monocyte Count 0.38 10^3/uL (0.1-0.8); Absolute Neutrophil Count 1.28 10^3/uL (1.2-6.7); Eosinophils % 3.4; HCT 33.4 % (36.0-46.0); HGB 11.1 g/dL (11.2-15.7); Immature Grans % 0.7; Lymphocytes % 37.4; MCH 34.9 pg (27.0-33.0); MCHC 33.2 % (32.0-36.0); MCV 105 fL (80-95); MPV 9.2 fL (8.0-11.0); Monocytes % 12.9; Neutrophils % 43.6; Platelet Count 211 10^3/uL (130-400); RBC 3.18 10^6/uL (3.93-5.22); RDW 17.1 % (11.7-14.6); RDW-SD 65.9 fL; WBC 2.94 10^3/uL (4.4-10.8)
[2022-11-11 12:32] LABS: ALT 15 U/L (14-59); AST 15 U/L (15-37); Albumin 3.4 g/dL (3.4-5.0); Alkaline Phosphatase 68 U/L (46-116); Anion Gap 9.6 mmol/L (3-11); BUN 8 mg/dL (7-18); Bilirubin, Total 0.2 mg/dL (0.2-1.0); CO2 27.4 mmol/L (21.0-32.0); Chloride 102 mmol/L (98-107); Estimated GFR 66.12 (mL/min/1.73m2); Glucose 135 mg/dL (74-106); Potassium 3.4 mmol/L (3.5-5.1); Sodium 139 mmol/L (136-145); Total Protein 7.2 g/dL (6.4-8.2)
[2022-11-12 16:56] LABS: Cancer Ag 15-3 36 U/mL (<30)
== END 2022-11-11 13:18 | disposition home or self-care (01) ==
LOC: LBO 13:18
PROVIDERS: PCP Internal Medicine Medical Oncology; Visit Provider Internal Medicine Medical Oncology
DX: C50.812 Malignant neoplasm of overlapping sites of left female breast (principal); Z17.0 Estrogen receptor positive status [ER+]
CPT/HCPCS: 36415; 80053; 86304; 85025; 86300

== ENCOUNTER 2022-12-21 13:15 | Outpatient (CLI) | payer OTHER, SELFPAY ==
[2022-12-21 12:28] LABS: Abs Immature Grans 0.01 10^3/uL (0.0-0.06); Absolute Basophil Count 0.09 10^3/uL (0.0-0.2); Absolute Eosinophil Count 0.07 10^3/uL (0.0-0.7); Absolute Neutrophil Count 1.56 10^3/uL (1.2-6.7); Basophils % 2.7; Eosinophils % 2.1; HCT 36.2 % (36.0-46.0); HGB 12.3 g/dL (11.2-15.7); Immature Grans % 0.3; MCH 35.5 pg (27.0-33.0); MCV 105 fL (80-95); MPV 9.7 fL (8.0-11.0); Neutrophils % 46.9; Platelet Count 231 10^3/uL (130-400); RBC 3.46 10^6/uL (3.93-5.22); RDW 14.1 % (11.7-14.6); RDW-SD 54.7 fL; WBC 3.33 10^3/uL (4.4-10.8)
[2022-12-21 12:42] LABS: ALT 27 U/L (14-59); AST 23 U/L (15-37); Albumin 3.6 g/dL (3.4-5.0); Alkaline Phosphatase 77 U/L (46-116); Anion Gap 8.6 mmol/L (3-11); BUN 7 mg/dL (7-18); Bilirubin, Total 0.3 mg/dL (0.2-1.0); CO2 26.4 mmol/L (21.0-32.0); CREATININE 1.1 mg/dL (0.55-1.02); Calcium 9.4 mg/dL (8.5-10.1); Chloride 105 mmol/L (98-107); Estimated GFR 58.97 (mL/min/1.73m2); Glucose 121 mg/dL (74-106); Potassium 3.8 mmol/L (3.5-5.1); Sodium 140 mmol/L (136-145); Total Protein 7.6 g/dL (6.4-8.2)
[2022-12-22 18:24] LABS: Cancer Ag 15-3 37 U/mL (<30)
== END 2022-12-21 13:16 | disposition home or self-care (01) ==
LOC: LBO 13:16
PROVIDERS: PCP Internal Medicine Medical Oncology; Visit Provider Internal Medicine Medical Oncology
DX: C50.812 Malignant neoplasm of overlapping sites of left female breast (principal); Z17.0 Estrogen receptor positive status [ER+]
CPT/HCPCS: 36415; 80053; 86304; 85025; 86300

== ENCOUNTER 2023-01-18 11:59 | Outpatient (CLI) | payer OTHER, SELFPAY ==
[2023-01-18 11:59] LABS: Abs Immature Grans 0.01 10^3/uL (0.0-0.06); Absolute Basophil Count 0.07 10^3/uL (0.0-0.2); Absolute Eosinophil Count 0.11 10^3/uL (0.0-0.7); Absolute Lymphocyte Count 1.33 10^3/uL (1.2-3.4); Absolute Monocyte Count 0.29 10^3/uL (0.1-0.8); Absolute Neutrophil Count 1.76 10^3/uL (1.2-6.7); Eosinophils % 3.1; HCT 35.7 % (36.0-46.0); HGB 11.7 g/dL (11.2-15.7); Immature Grans % 0.3; Lymphocytes % 37.2; MCH 34.1 pg (27.0-33.0); MCHC 32.8 % (32.0-36.0); MCV 104 fL (80-95); MPV 9.6 fL (8.0-11.0); Monocytes % 8.1; Neutrophils % 49.3; Platelet Count 243 10^3/uL (130-400); RBC 3.43 10^6/uL (3.93-5.22); RDW 13.3 % (11.7-14.6); RDW-SD 51.6 fL; WBC 3.58 10^3/uL (4.4-10.8)
[2023-01-18 12:15] LABS: ALT 20 U/L (14-59); AST 23 U/L (15-37); Albumin 3.2 g/dL (3.4-5.0); Alkaline Phosphatase 86 U/L (46-116); Anion Gap 10.1 mmol/L (3-11); BUN 7 mg/dL (7-18); Bilirubin, Total 0.3 mg/dL (0.2-1.0); CO2 22.9 mmol/L (21.0-32.0); CREATININE 0.9 mg/dL (0.55-1.02); Calcium 8.7 mg/dL (8.5-10.1); Chloride 104 mmol/L (98-107); Estimated GFR 75.03 (mL/min/1.73m2); Glucose 186 mg/dL (74-106); Potassium 3.3 mmol/L (3.5-5.1); Sodium 137 mmol/L (136-145); Total Protein 7.3 g/dL (6.4-8.2)
[2023-01-19 19:21] LABS: Cancer Ag 15-3 35 U/mL (<30)
== END 2023-01-18 12:00 | disposition home or self-care (01) ==
LOC: LBO 12:00
PROVIDERS: PCP Internal Medicine Medical Oncology; Visit Provider Internal Medicine Medical Oncology
DX: C50.812 Malignant neoplasm of overlapping sites of left female breast (principal); Z17.0 Estrogen receptor positive status [ER+]
CPT/HCPCS: 36415; 80053; 86304; 85025; 86300

== ENCOUNTER 2023-02-15 18:45 | Outpatient (CLI) | payer OTHER, SELFPAY ==
[2023-02-15 12:20] LABS: Abs Immature Grans 0.01 10^3/uL (0.0-0.06); Absolute Basophil Count 0.07 10^3/uL (0.0-0.2); Absolute Eosinophil Count 0.11 10^3/uL (0.0-0.7); Absolute Lymphocyte Count 1.02 10^3/uL (1.2-3.4); Absolute Monocyte Count 0.27 10^3/uL (0.1-0.8); Absolute Neutrophil Count 1.56 10^3/uL (1.2-6.7); Basophils % 2.3; Eosinophils % 3.6; HCT 37.1 % (36.0-46.0); HGB 12.3 g/dL (11.2-15.7); Immature Grans % 0.3; Lymphocytes % 33.6; MCH 33.4 pg (27.0-33.0); MCHC 33.2 % (32.0-36.0); MCV 101 fL (80-95); Monocytes % 8.9; Neutrophils % 51.3; Platelet Count 223 10^3/uL (130-400); RBC 3.68 10^6/uL (3.93-5.22); RDW 13.2 % (11.7-14.6); RDW-SD 49.6 fL; WBC 3.04 10^3/uL (4.4-10.8)
[2023-02-15 12:39] LABS: ALT 21 U/L (14-59); AST 20 U/L (15-37); Albumin 3.2 g/dL (3.4-5.0); Alkaline Phosphatase 86 U/L (46-116); Anion Gap 10.5 mmol/L (3-11); BUN 5 mg/dL (7-18); Bilirubin, Total 0.3 mg/dL (0.2-1.0); CO2 25.5 mmol/L (21.0-32.0); CREATININE 0.9 mg/dL (0.55-1.02); Calcium 8.9 mg/dL (8.5-10.1); Chloride 105 mmol/L (98-107); Estimated GFR 75.03 (mL/min/1.73m2); Glucose 142 mg/dL (74-106); Potassium 3.4 mmol/L (3.5-5.1); Sodium 141 mmol/L (136-145); Total Protein 7.3 g/dL (6.4-8.2)
[2023-02-16 16:55] LABS: Cancer Ag 15-3 35 U/mL (<30)
== END 2023-02-15 18:46 | disposition home or self-care (01) ==
LOC: LBO 18:45
PROVIDERS: PCP Internal Medicine Medical Oncology; Visit Provider Internal Medicine Medical Oncology
DX: C50.812 Malignant neoplasm of overlapping sites of left female breast (principal); Z17.0 Estrogen receptor positive status [ER+]
CPT/HCPCS: 36415; 80053; 86304; 85025; 86300

== ENCOUNTER 2023-04-12 15:47 | Outpatient (CLI) | payer OTHER, SELFPAY ==
[2023-04-12 13:07] LABS: Abs Immature Grans 0.02 10^3/uL (0.0-0.06); Absolute Basophil Count 0.05 10^3/uL (0.0-0.2); Absolute Eosinophil Count 0.08 10^3/uL (0.0-0.7); Absolute Lymphocyte Count 1.08 10^3/uL (1.2-3.4); Absolute Monocyte Count 0.42 10^3/uL (0.1-0.8); Basophils % 1.2; Eosinophils % 1.9; HCT 32.8 % (36.0-46.0); HGB 11.1 g/dL (11.2-15.7); Immature Grans % 0.5; Lymphocytes % 25.2; MCH 34.3 pg (27.0-33.0); MCHC 33.8 % (32.0-36.0); MCV 101 fL (80-95); MPV 9.1 fL (8.0-11.0); Monocytes % 9.8; Neutrophils % 61.4; Platelet Count 256 10^3/uL (130-400); RBC 3.24 10^6/uL (3.93-5.22); RDW 16.1 % (11.7-14.6); RDW-SD 60.7 fL; WBC 4.29 10^3/uL (4.4-10.8)
[2023-04-12 13:10] LABS: Absolute Neutrophil Count 2.63 10^3/uL (1.2-6.7)
[2023-04-12 13:52] LABS: ALT 15 U/L (14-59); AST 20 U/L (15-37); Albumin 2.9 g/dL (3.4-5.0); Alkaline Phosphatase 96 U/L (46-116); Anion Gap 8.9 mmol/L (3-11); BUN 6 mg/dL (7-18); Bilirubin, Total 0.3 mg/dL (0.2-1.0); CO2 29.1 mmol/L (21.0-32.0); CREATININE 0.8 mg/dL (0.55-1.02); Calcium 9.1 mg/dL (8.5-10.1); Chloride 104 mmol/L (98-107); Estimated GFR 85.89 (mL/min/1.73m2); Glucose 96 mg/dL (74-106); Sodium 142 mmol/L (136-145); Total Protein 6.7 g/dL (6.4-8.2)
[2023-04-12 14:02] LABS: Potassium 2.6 mmol/L (3.5-5.1)
[2023-04-13 16:39] LABS: Cancer Ag 15-3 33 U/mL (<30)
== END 2023-04-12 15:48 | disposition home or self-care (01) ==
LOC: LBO 15:48
PROVIDERS: PCP Internal Medicine Medical Oncology; Visit Provider Internal Medicine Medical Oncology
DX: C50.812 Malignant neoplasm of overlapping sites of left female breast (principal); Z17.0 Estrogen receptor positive status [ER+]
CPT/HCPCS: 36415; 80053; 86304; 85025; 86300

== ENCOUNTER 2023-04-18 15:03 | Outpatient (CLI) | payer OTHER, SELFPAY ==
[2023-04-18 14:57] LABS: Potassium 2.7 mmol/L (3.5-5.1)
== END 2023-04-18 15:04 | disposition home or self-care (01) ==
LOC: LBO 15:05
PROVIDERS: PCP Internal Medicine Medical Oncology; Visit Provider Physician Assistant
DX: C50.812 Malignant neoplasm of overlapping sites of left female breast (principal); Z17.0 Estrogen receptor positive status [ER+]
CPT/HCPCS: 36415; 84132

== ENCOUNTER 2023-05-10 16:01 | Outpatient (CLI) | payer OTHER, SELFPAY ==
[2023-05-10 12:28] LABS: Abs Immature Grans 0.02 10^3/uL (0.0-0.06); Absolute Basophil Count 0.08 10^3/uL (0.0-0.2); Absolute Eosinophil Count 0.13 10^3/uL (0.0-0.7); Absolute Lymphocyte Count 1.03 10^3/uL (1.2-3.4); Absolute Monocyte Count 0.53 10^3/uL (0.1-0.8); Absolute Neutrophil Count 3.67 10^3/uL (1.2-6.7); Basophils % 1.5; Eosinophils % 2.4; HCT 33.7 % (36.0-46.0); HGB 11.1 g/dL (11.2-15.7); Immature Grans % 0.4; Lymphocytes % 18.9; MCH 33.5 pg (27.0-33.0); MCHC 32.9 % (32.0-36.0); MCV 102 fL (80-95); MPV 9.5 fL (8.0-11.0); Monocytes % 9.7; Neutrophils % 67.1; Platelet Count 313 10^3/uL (130-400); RBC 3.31 10^6/uL (3.93-5.22); RDW 15.4 % (11.7-14.6); RDW-SD 58.2 fL; WBC 5.46 10^3/uL (4.4-10.8)
[2023-05-10 12:42] LABS: ALT 23 U/L (14-59); AST 32 U/L (15-37); Alkaline Phosphatase 108 U/L (46-116); Anion Gap 14.3 mmol/L (3-11); BUN 7 mg/dL (7-18); Bilirubin, Total 0.2 mg/dL (0.2-1.0); CO2 22.7 mmol/L (21.0-32.0); CREATININE 0.8 mg/dL (0.55-1.02); Calcium 9.1 mg/dL (8.5-10.1); Chloride 101 mmol/L (98-107); Estimated GFR 85.89 (mL/min/1.73m2); Glucose 144 mg/dL (74-106); Sodium 138 mmol/L (136-145); Total Protein 6.9 g/dL (6.4-8.2)
[2023-05-10 12:55] LABS: Potassium 2.7 mmol/L (3.5-5.1)
[2023-05-12 11:19] LABS: Cancer Ag 15-3 35 U/mL (<30)
== END 2023-05-10 16:02 | disposition home or self-care (01) ==
LOC: LBO 16:01
PROVIDERS: PCP Internal Medicine Medical Oncology; Visit Provider Internal Medicine Medical Oncology
DX: C50.812 Malignant neoplasm of overlapping sites of left female breast (principal); Z17.0 Estrogen receptor positive status [ER+]
CPT/HCPCS: 36415; 80053; 86304; 85025; 86300

== ENCOUNTER 2023-05-17 16:04 | Outpatient (CLI) | payer OTHER, SELFPAY ==
[2023-05-17 12:06] LABS: Abs Immature Grans 0.02 10^3/uL (0.0-0.06); Absolute Basophil Count 0.08 10^3/uL (0.0-0.2); Absolute Eosinophil Count 0.23 10^3/uL (0.0-0.7); Absolute Lymphocyte Count 1.15 10^3/uL (1.2-3.4); Absolute Monocyte Count 0.47 10^3/uL (0.1-0.8); Absolute Neutrophil Count 4.26 10^3/uL (1.2-6.7); Basophils % 1.3; Eosinophils % 3.7; HCT 34.6 % (36.0-46.0); HGB 11.3 g/dL (11.2-15.7); Immature Grans % 0.3; Lymphocytes % 18.5; MCHC 32.7 % (32.0-36.0); MCV 101 fL (80-95); MPV 9.6 fL (8.0-11.0); Monocytes % 7.6; Neutrophils % 68.6; Platelet Count 327 10^3/uL (130-400); RBC 3.42 10^6/uL (3.93-5.22); RDW 15.4 % (11.7-14.6); RDW-SD 57.4 fL; WBC 6.21 10^3/uL (4.4-10.8)
[2023-05-17 12:20] LABS: ALT 24 U/L (14-59); AST 28 U/L (15-37); Alkaline Phosphatase 104 U/L (46-116); Anion Gap 15.5 mmol/L (3-11); BUN 3 mg/dL (7-18); Bilirubin, Total 0.2 mg/dL (0.2-1.0); CO2 19.5 mmol/L (21.0-32.0); CREATININE 0.8 mg/dL (0.55-1.02); Calcium 8.7 mg/dL (8.5-10.1); Chloride 103 mmol/L (98-107); Estimated GFR 85.89 (mL/min/1.73m2); Glucose 153 mg/dL (74-106); Magnesium 1.6 mg/dL (1.8-2.4); Sodium 138 mmol/L (136-145); Total Protein 7.1 g/dL (6.4-8.2)
[2023-05-17 12:33] LABS: Potassium 2.9 mmol/L (3.5-5.1)
[2023-05-20 09:47] LABS: Cancer Ag 15-3 33 U/mL (<30)
== END 2023-05-17 16:05 | disposition home or self-care (01) ==
LOC: LBO 16:05
PROVIDERS: PCP Internal Medicine Medical Oncology; Visit Provider Internal Medicine Medical Oncology
DX: C50.812 Malignant neoplasm of overlapping sites of left female breast (principal); Z17.0 Estrogen receptor positive status [ER+]
CPT/HCPCS: 36415; 80053; 86304; 83735; 85025; 86300

== ENCOUNTER 2023-05-24 12:51 | Outpatient (CLI) | payer OTHER, SELFPAY ==
[2023-05-24 13:01] LABS: Abs Immature Grans 0.03 10^3/uL (0.0-0.06); Absolute Basophil Count 0.08 10^3/uL (0.0-0.2); Absolute Eosinophil Count 0.15 10^3/uL (0.0-0.7); Absolute Monocyte Count 0.52 10^3/uL (0.1-0.8); Absolute Neutrophil Count 3.14 10^3/uL (1.2-6.7); Basophils % 1.5; Eosinophils % 2.8; HCT 36.3 % (36.0-46.0); HGB 11.8 g/dL (11.2-15.7); Immature Grans % 0.6; Lymphocytes % 27.7; MCH 33.1 pg (27.0-33.0); MCHC 32.5 % (32.0-36.0); MCV 102 fL (80-95); MPV 9.6 fL (8.0-11.0); Monocytes % 9.6; Neutrophils % 57.8; Platelet Count 286 10^3/uL (130-400); RBC 3.56 10^6/uL (3.93-5.22); RDW 15.2 % (11.7-14.6); RDW-SD 57.1 fL; WBC 5.42 10^3/uL (4.4-10.8)
[2023-05-24 13:16] LABS: ALT 26 U/L (14-59); AST 24 U/L (15-37); Albumin 3.4 g/dL (3.4-5.0); Alkaline Phosphatase 103 U/L (46-116); Anion Gap 13.8 mmol/L (3-11); BUN 8 mg/dL (7-18); Bilirubin, Total 0.2 mg/dL (0.2-1.0); CO2 21.2 mmol/L (21.0-32.0); Calcium 9.8 mg/dL (8.5-10.1); Chloride 98 mmol/L (98-107); Estimated GFR 65.71 (mL/min/1.73m2); Glucose 130 mg/dL (74-106); Sodium 133 mmol/L (136-145); Total Protein 7.7 g/dL (6.4-8.2)
[2023-05-26 17:24] LABS: Cancer Ag 15-3 37 U/mL (<30)
== END 2023-05-24 12:52 | disposition home or self-care (01) ==
LOC: LBO 12:51
PROVIDERS: PCP Internal Medicine Medical Oncology; Visit Provider Internal Medicine Medical Oncology
DX: C50.812 Malignant neoplasm of overlapping sites of left female breast (principal); Z17.0 Estrogen receptor positive status [ER+]
CPT/HCPCS: 36415; 80053; 86304; 85025; 86300

== ENCOUNTER 2023-06-07 12:59 | Outpatient (CLI) | payer OTHER, SELFPAY ==
[2023-06-07 12:47] LABS: Abs Immature Grans 0.01 10^3/uL (0.0-0.06); Absolute Basophil Count 0.07 10^3/uL (0.0-0.2); Absolute Eosinophil Count 0.11 10^3/uL (0.0-0.7); Absolute Lymphocyte Count 1.54 10^3/uL (1.2-3.4); Absolute Monocyte Count 0.36 10^3/uL (0.1-0.8); Absolute Neutrophil Count 2.38 10^3/uL (1.2-6.7); Basophils % 1.6; Eosinophils % 2.5; HCT 34.8 % (36.0-46.0); HGB 11.5 g/dL (11.2-15.7); Immature Grans % 0.2; Lymphocytes % 34.5; MCH 33.6 pg (27.0-33.0); MCV 102 fL (80-95); Monocytes % 8.1; Neutrophils % 53.1; Platelet Count 243 10^3/uL (130-400); RBC 3.42 10^6/uL (3.93-5.22); RDW 15.5 % (11.7-14.6); RDW-SD 57.9 fL; WBC 4.47 10^3/uL (4.4-10.8)
[2023-06-07 13:11] LABS: ALT 17 U/L (14-59); AST 25 U/L (15-37); Albumin 3.3 g/dL (3.4-5.0); Alkaline Phosphatase 93 U/L (46-116); Anion Gap 12.4 mmol/L (3-11); BUN 5 mg/dL (7-18); Bilirubin, Total 0.2 mg/dL (0.2-1.0); CO2 20.6 mmol/L (21.0-32.0); CREATININE 0.8 mg/dL (0.55-1.02); Calcium 9.3 mg/dL (8.5-10.1); Chloride 102 mmol/L (98-107); Estimated GFR 85.89 (mL/min/1.73m2); Glucose 95 mg/dL (74-106); Potassium 3.5 mmol/L (3.5-5.1); Sodium 135 mmol/L (136-145); Total Protein 7.6 g/dL (6.4-8.2)
[2023-06-08 19:11] LABS: Cancer Ag 15-3 36 U/mL (<30)
== END 2023-06-07 13:00 | disposition home or self-care (01) ==
LOC: LBO 12:59
PROVIDERS: PCP Internal Medicine Medical Oncology; Visit Provider Internal Medicine Medical Oncology
DX: C50.812 Malignant neoplasm of overlapping sites of left female breast (principal); Z17.0 Estrogen receptor positive status [ER+]
CPT/HCPCS: 36415; 80053; 86304; 85025; 86300

== ENCOUNTER 2023-07-05 13:04 | Outpatient (CLI) | payer OTHER, SELFPAY ==
[2023-07-05 12:15] LABS: Abs Immature Grans 0.02 10^3/uL (0.0-0.06); Absolute Basophil Count 0.07 10^3/uL (0.0-0.2); Absolute Lymphocyte Count 1.39 10^3/uL (1.2-3.4); Absolute Monocyte Count 0.36 10^3/uL (0.1-0.8); Absolute Neutrophil Count 2.68 10^3/uL (1.2-6.7); Basophils % 1.5; Eosinophils % 2.2; HCT 33.3 % (36.0-46.0); Immature Grans % 0.4; Lymphocytes % 30.1; MCH 34.1 pg (27.0-33.0); MCV 103 fL (80-95); MPV 9.2 fL (8.0-11.0); Monocytes % 7.8; Platelet Count 260 10^3/uL (130-400); RBC 3.23 10^6/uL (3.93-5.22); RDW 15.7 % (11.7-14.6); WBC 4.62 10^3/uL (4.4-10.8)
[2023-07-05 12:33] LABS: ALT 17 U/L (14-59); AST 23 U/L (15-37); Albumin 3.3 g/dL (3.4-5.0); Alkaline Phosphatase 81 U/L (46-116); Anion Gap 14.1 mmol/L (3-11); BUN 5 mg/dL (7-18); Bilirubin, Total 0.3 mg/dL (0.2-1.0); CO2 22.9 mmol/L (21.0-32.0); CREATININE 0.9 mg/dL (0.55-1.02); Calcium 9.3 mg/dL (8.5-10.1); Chloride 102 mmol/L (98-107); Estimated GFR 74.57 (mL/min/1.73m2); Glucose 194 mg/dL (74-106); Potassium 3.2 mmol/L (3.5-5.1); Sodium 139 mmol/L (136-145); Total Protein 7.1 g/dL (6.4-8.2)
[2023-07-07 15:00] LABS: Cancer Ag 15-3 35 U/mL (<30)
== END 2023-07-05 13:05 | disposition home or self-care (01) ==
LOC: LBO 13:04
PROVIDERS: PCP Internal Medicine Medical Oncology; Visit Provider Internal Medicine Medical Oncology
DX: C50.812 Malignant neoplasm of overlapping sites of left female breast (principal); Z17.0 Estrogen receptor positive status [ER+]
CPT/HCPCS: 36415; 80053; 86304; 85025; 86300

== ENCOUNTER 2023-08-18 02:14 | Outpatient (CLI) | payer OTHER, SELFPAY ==
[2023-08-18 11:35] LABS: Abs Immature Grans 0.03 10^3/uL (0.0-0.06); Absolute Basophil Count 0.07 10^3/uL (0.0-0.2); Absolute Eosinophil Count 0.09 10^3/uL (0.0-0.7); Absolute Lymphocyte Count 1.57 10^3/uL (1.2-3.4); Absolute Monocyte Count 0.44 10^3/uL (0.1-0.8); Absolute Neutrophil Count 2.97 10^3/uL (1.2-6.7); Basophils % 1.4; Eosinophils % 1.7; HCT 34.5 % (36.0-46.0); HGB 11.5 g/dL (11.2-15.7); Immature Grans % 0.6; Lymphocytes % 30.4; MCH 33.5 pg (27.0-33.0); MCHC 33.3 % (32.0-36.0); MCV 101 fL (80-95); MPV 9.3 fL (8.0-11.0); Monocytes % 8.5; Neutrophils % 57.4; Platelet Count 323 10^3/uL (130-400); RBC 3.43 10^6/uL (3.93-5.22); RDW 15.7 % (11.7-14.6); RDW-SD 58.9 fL; WBC 5.17 10^3/uL (4.4-10.8)
[2023-08-18 11:55] LABS: ALT 21 U/L (14-59); AST 19 U/L (15-37); Albumin 3.2 g/dL (3.4-5.0); Alkaline Phosphatase 89 U/L (46-116); Anion Gap 13.7 mmol/L (3-11); BUN 9 mg/dL (7-18); Bilirubin, Total 0.2 mg/dL (0.2-1.0); CO2 21.3 mmol/L (21.0-32.0); CREATININE 0.8 mg/dL (0.55-1.02); Calcium 8.9 mg/dL (8.5-10.1); Chloride 101 mmol/L (98-107); Estimated GFR 85.89 (mL/min/1.73m2); Glucose 76 mg/dL (74-106); Potassium 3.1 mmol/L (3.5-5.1); Sodium 136 mmol/L (136-145); Total Protein 7.3 g/dL (6.4-8.2)
[2023-08-20 10:21] LABS: Cancer Ag 15-3 41 U/mL (<30)
== END 2023-08-18 02:15 | disposition home or self-care (01) ==
LOC: LBO 02:14
PROVIDERS: PCP Internal Medicine Medical Oncology; Visit Provider Internal Medicine Medical Oncology
DX: C50.812 Malignant neoplasm of overlapping sites of left female breast (principal); Z17.0 Estrogen receptor positive status [ER+]
CPT/HCPCS: 36415; 80053; 86304; 85025; 86300

== ENCOUNTER 2023-09-15 15:23 | Outpatient (CLI) | payer OTHER, SELFPAY ==
[2023-09-15 15:20] LABS: ALT 15 U/L (14-59); AST 23 U/L (15-37); Albumin 3.3 g/dL (3.4-5.0); Alkaline Phosphatase 86 U/L (46-116); Anion Gap 8.8 mmol/L (3-11); BUN 3 mg/dL (7-18); Bilirubin, Total 0.3 mg/dL (0.2-1.0); CO2 27.2 mmol/L (21.0-32.0); CREATININE 0.8 mg/dL (0.55-1.02); Calcium 9.5 mg/dL (8.5-10.1); Chloride 105 mmol/L (98-107); Estimated GFR 85.89 (mL/min/1.73m2); Glucose 106 mg/dL (74-106); Sodium 141 mmol/L (136-145); Total Protein 7.2 g/dL (6.4-8.2)
[2023-09-15 15:22] LABS: HCT 35.7 % (36.0-46.0); HGB 12.1 g/dL (11.2-15.7); MCH 34.8 pg (27.0-33.0); MCHC 33.9 % (32.0-36.0); MCV 103 fL (80-95); MPV 9.1 fL (8.0-11.0); Platelet Count 343 10^3/uL (130-400); RBC 3.48 10^6/uL (3.93-5.22); RDW 16.9 % (11.7-14.6); RDW-SD 63.2 fL; WBC 4.02 10^3/uL (4.4-10.8)
[2023-09-15 15:23] LABS: Abs Immature Grans 0.02 10^3/uL (0.0-0.06); Absolute Basophil Count 0.07 10^3/uL (0.0-0.2); Absolute Lymphocyte Count 1.25 10^3/uL (1.2-3.4); Absolute Monocyte Count 0.34 10^3/uL (0.1-0.8); Absolute Neutrophil Count 2.24 10^3/uL (1.2-6.7); Basophils % 1.7; Eosinophils % 2.5; Immature Grans % 0.5; Lymphocytes % 31.1; Monocytes % 8.5; Neutrophils % 55.7
[2023-09-19 11:56] LABS: Cancer Ag 15-3 51 U/mL (<30)
== END 2023-09-15 15:24 | disposition home or self-care (01) ==
LOC: LBO 15:23
PROVIDERS: PCP Internal Medicine Medical Oncology; Visit Provider Internal Medicine Medical Oncology
DX: C50.812 Malignant neoplasm of overlapping sites of left female breast (principal); Z17.0 Estrogen receptor positive status [ER+]
CPT/HCPCS: 36415; 80053; 86300; 85025

== ENCOUNTER 2023-10-13 02:08 | Outpatient (CLI) | payer OTHER, SELFPAY ==
[2023-10-13 08:55] LABS: Abs Immature Grans 0.02 10^3/uL (0.0-0.06); Absolute Basophil Count 0.06 10^3/uL (0.0-0.2); Absolute Eosinophil Count 0.14 10^3/uL (0.0-0.7); Absolute Lymphocyte Count 1.35 10^3/uL (1.2-3.4); Absolute Neutrophil Count 2.17 10^3/uL (1.2-6.7); Basophils % 1.5; Eosinophils % 3.5; HCT 34.5 % (36.0-46.0); HGB 11.4 g/dL (11.2-15.7); Immature Grans % 0.5; Lymphocytes % 33.4; MCH 33.4 pg (27.0-33.0); MCV 101 fL (80-95); MPV 9.7 fL (8.0-11.0); Monocytes % 7.4; Neutrophils % 53.7; Platelet Count 305 10^3/uL (130-400); RBC 3.41 10^6/uL (3.93-5.22); RDW 16.1 % (11.7-14.6); RDW-SD 60.1 fL; WBC 4.04 10^3/uL (4.4-10.8)
[2023-10-13 09:09] LABS: ALT 14 U/L (14-59); AST 17 U/L (15-37); Albumin 3.1 g/dL (3.4-5.0); Alkaline Phosphatase 90 U/L (46-116); Anion Gap 11.5 mmol/L (3-11); BUN 4 mg/dL (7-18); Bilirubin, Total 0.3 mg/dL (0.2-1.0); CO2 27.5 mmol/L (21.0-32.0); CREATININE 0.7 mg/dL (0.55-1.02); Chloride 104 mmol/L (98-107); Estimated GFR 100.81 (mL/min/1.73m2); Glucose 111 mg/dL (74-106); Potassium 3.1 mmol/L (3.5-5.1); Sodium 143 mmol/L (136-145); Total Protein 7.1 g/dL (6.4-8.2)
[2023-10-14 20:12] LABS: Cancer Ag 15-3 44 U/mL (<30)
== END 2023-10-13 02:09 | disposition home or self-care (01) ==
LOC: LBO 02:08
PROVIDERS: PCP Internal Medicine Medical Oncology; Visit Provider Internal Medicine Medical Oncology
DX: C79.51 Secondary malignant neoplasm of bone (principal)
CPT/HCPCS: 36415; 80053; 86300; 85025

== ENCOUNTER 2023-11-10 03:23 | Outpatient (CLI) | payer OTHER, SELFPAY ==
[2023-11-10 09:16] LABS: Abs Immature Grans 0.01 10^3/uL (0.0-0.06); Absolute Basophil Count 0.06 10^3/uL (0.0-0.2); Absolute Eosinophil Count 0.12 10^3/uL (0.0-0.7); Absolute Lymphocyte Count 0.72 10^3/uL (1.2-3.4); Absolute Monocyte Count 0.29 10^3/uL (0.1-0.8); Absolute Neutrophil Count 2.03 10^3/uL (1.2-6.7); Basophils % 1.9; Eosinophils % 3.7; HGB 11.7 g/dL (11.2-15.7); Immature Grans % 0.3; Lymphocytes % 22.3; MCH 34.1 pg (27.0-33.0); MCHC 33.4 % (32.0-36.0); MCV 102 fL (80-95); MPV 8.9 fL (8.0-11.0); Neutrophils % 62.8; Platelet Count 261 10^3/uL (130-400); RBC 3.43 10^6/uL (3.93-5.22); RDW 16.3 % (11.7-14.6); RDW-SD 61.4 fL; WBC 3.23 10^3/uL (4.4-10.8)
[2023-11-10 09:33] LABS: ALT 12 U/L (14-59); AST 18 U/L (15-37); Albumin 3.1 g/dL (3.4-5.0); Alkaline Phosphatase 96 U/L (46-116); Anion Gap 11.1 mmol/L (3-11); BUN 3 mg/dL (7-18); Bilirubin, Total 0.3 mg/dL (0.2-1.0); CO2 25.9 mmol/L (21.0-32.0); CREATININE 0.8 mg/dL (0.55-1.02); Calcium 9.1 mg/dL (8.5-10.1); Chloride 104 mmol/L (98-107); Estimated GFR 85.89 (mL/min/1.73m2); Glucose 97 mg/dL (74-106); Potassium 3.6 mmol/L (3.5-5.1); Sodium 141 mmol/L (136-145)
[2023-11-12 12:32] LABS: Cancer Ag 15-3 51 U/mL (<30)
== END 2023-11-10 03:24 | disposition home or self-care (01) ==
LOC: LBO 03:23
PROVIDERS: PCP Internal Medicine Medical Oncology; Visit Provider Internal Medicine Medical Oncology
DX: C79.51 Secondary malignant neoplasm of bone (principal)
CPT/HCPCS: 36415; 80053; 86300; 85025

== ENCOUNTER 2024-01-05 04:55 | Outpatient (CLI) | payer OTHER, SELFPAY ==
[2024-01-05 08:42] LABS: Abs Immature Grans 0.02 10^3/uL (0.0-0.06); Absolute Basophil Count 0.06 10^3/uL (0.0-0.2); Absolute Eosinophil Count 0.19 10^3/uL (0.0-0.7); Absolute Lymphocyte Count 1.28 10^3/uL (1.2-3.4); Absolute Monocyte Count 0.45 10^3/uL (0.1-0.8); Absolute Neutrophil Count 3.36 10^3/uL (1.2-6.7); Basophils % 1.1 %; Eosinophils % 3.5 %; HCT 34.6 % (36.0-46.0); HGB 11.4 g/dL (11.2-15.7); Immature Grans % 0.4 %; Lymphocytes % 23.9 %; MCH 34.5 pg (27.0-33.0); MCHC 32.9 % (32.0-36.0); MCV 105 fL (80-95); MPV 9.2 fL (8.0-11.0); Monocytes % 8.4 %; Neutrophils % 62.7 %; Nucleated RBC 0.4 % (0.0-0.3); Platelet Count 428 10^3/uL (130-400); RDW 18.8 % (11.7-14.6); RDW-SD 71.8 fL; WBC 5.36 10^3/uL (4.4-10.8)
[2024-01-05 09:02] LABS: ALT 23 U/L (14-59); AST 28 U/L (15-37); Albumin 3.1 g/dL (3.4-5.0); Alkaline Phosphatase 167 U/L (46-116); BUN 3 mg/dL (7-18); Bilirubin, Total 0.4 mg/dL (0.2-1.0); CO2 26.8 mmol/L (21.0-32.0); CREATININE 0.7 mg/dL (0.55-1.02); Calcium 8.6 mg/dL (8.5-10.1); Estimated GFR 100.81 (mL/min/1.73m2); Glucose 111 mg/dL (74-106); Total Protein 7.2 g/dL (6.4-8.2)
[2024-01-05 09:11] LABS: Sodium 144 mmol/L (136-145)
[2024-01-05 09:14] LABS: Anion Gap 13.2 mmol/L (3-11)
[2024-01-05 09:19] LABS: Potassium 2.8 mmol/L (3.5-5.1)
[2024-01-07 13:28] LABS: Cancer Ag 15-3 59 U/mL (<30)
[2024-01-11 07:56] LABS: Chloride 104 mmol/L (98-107)
== END 2024-01-05 04:56 | disposition home or self-care (01) ==
LOC: LBO 04:55
PROVIDERS: PCP Internal Medicine Medical Oncology; Visit Provider Internal Medicine Medical Oncology
DX: C79.51 Secondary malignant neoplasm of bone (principal)
CPT/HCPCS: 36415; 80053; 86300; 85025

== ENCOUNTER 2024-01-20 12:39 | Outpatient (CLI) | payer OTHER, SELFPAY ==
[2024-01-20 11:47] LABS: Abs Immature Grans 0.02 10^3/uL (0.0-0.06); Absolute Basophil Count 0.05 10^3/uL (0.0-0.2); Absolute Eosinophil Count 0.06 10^3/uL (0.0-0.7); Absolute Lymphocyte Count 1.21 10^3/uL (1.2-3.4); Absolute Monocyte Count 0.34 10^3/uL (0.1-0.8); Absolute Neutrophil Count 3.63 10^3/uL (1.2-6.7); Basophils % 0.9 %; Eosinophils % 1.1 %; HCT 34.2 % (36.0-46.0); HGB 11.1 g/dL (11.2-15.7); Immature Grans % 0.4 %; Lymphocytes % 22.8 %; MCH 34.6 pg (27.0-33.0); MCHC 32.5 % (32.0-36.0); MPV 9.6 fL (8.0-11.0); Monocytes % 6.4 %; Neutrophils % 68.4 %; Platelet Count 384 10^3/uL (130-400); RBC 3.21 10^6/uL (3.93-5.22); RDW 19.1 % (11.7-14.6); RDW-SD 75.3 fL; WBC 5.31 10^3/uL (4.4-10.8)
[2024-01-20 11:52] LABS: MCV 107 fL (80-95)
[2024-01-20 12:03] LABS: Hemoglobin A1C 5.7 % (<5.7)
[2024-01-20 12:47] LABS: ALT 19 U/L (14-59); AST 26 U/L (15-37); Albumin 3.5 g/dL (3.4-5.0); Alkaline Phosphatase 131 U/L (46-116); Anion Gap 14.5 mmol/L (3-11); BUN 5 mg/dL (7-18); Bilirubin, Total 0.6 mg/dL (0.2-1.0); CO2 28.5 mmol/L (21.0-32.0); CREATININE 0.7 mg/dL (0.55-1.02); Calcium 8.7 mg/dL (8.5-10.1); Chloride 102 mmol/L (98-107); Estimated GFR 100.81 (mL/min/1.73m2); Glucose 104 mg/dL (74-106); Sodium 145 mmol/L (136-145); Total Protein 7.5 g/dL (6.4-8.2)
[2024-01-20 13:00] LABS: Potassium 2.6 mmol/L (3.5-5.1)
[2024-01-23 14:06] LABS: Cancer Ag 15-3 64 U/mL (<30)
== END 2024-01-20 12:40 | disposition home or self-care (01) ==
LOC: LBO 12:39
PROVIDERS: PCP Internal Medicine Medical Oncology; Visit Provider Internal Medicine Medical Oncology
DX: C50.812 Malignant neoplasm of overlapping sites of left female breast (principal); Z17.0 Estrogen receptor positive status [ER+]; C78.7 Secondary malignant neoplasm of liver and intrahepatic bile duct
CPT/HCPCS: 36415; 80053; 86300; 83036; 85025

== ENCOUNTER 2024-02-02 04:09 | Outpatient (CLI) | payer OTHER, SELFPAY ==
[2024-02-02 08:49] LABS: Abs Immature Grans 0.01 10^3/uL (0.0-0.06); Absolute Basophil Count 0.07 10^3/uL (0.0-0.2); Absolute Eosinophil Count 0.08 10^3/uL (0.0-0.7); Absolute Lymphocyte Count 1.37 10^3/uL (1.2-3.4); Absolute Monocyte Count 0.41 10^3/uL (0.1-0.8); Absolute Neutrophil Count 2.92 10^3/uL (1.2-6.7); Basophils % 1.4 %; Eosinophils % 1.6 %; HGB 11.8 g/dL (11.2-15.7); Immature Grans % 0.2 %; Lymphocytes % 28.2 %; MCH 33.2 pg (27.0-33.0); MCHC 31.9 % (32.0-36.0); MCV 104 fL (80-95); MPV 9.3 fL (8.0-11.0); Monocytes % 8.4 %; Neutrophils % 60.2 %; Platelet Count 472 10^3/uL (130-400); RBC 3.55 10^6/uL (3.93-5.22); RDW-SD 74.1 fL; WBC 4.86 10^3/uL (4.4-10.8)
[2024-02-02 09:07] LABS: Hemoglobin A1C 5.7 % (<5.7)
[2024-02-02 09:24] LABS: ALT 24 U/L (14-59); AST 31 U/L (15-37); Albumin 3.5 g/dL (3.4-5.0); Alkaline Phosphatase 118 U/L (46-116); Anion Gap 12.4 mmol/L (3-11); BUN 5 mg/dL (7-18); Bilirubin, Total 0.4 mg/dL (0.2-1.0); CO2 25.6 mmol/L (21.0-32.0); CREATININE 0.7 mg/dL (0.55-1.02); Calcium 9.1 mg/dL (8.5-10.1); Chloride 104 mmol/L (98-107); Estimated GFR 100.81 (mL/min/1.73m2); Glucose 120 mg/dL (74-106); Potassium 3.4 mmol/L (3.5-5.1); Sodium 142 mmol/L (136-145); Total Protein 7.5 g/dL (6.4-8.2)
[2024-02-04 13:44] LABS: Cancer Ag 15-3 71 U/mL (<30)
== END 2024-02-02 04:10 | disposition home or self-care (01) ==
LOC: LBO 04:09
PROVIDERS: PCP Internal Medicine Medical Oncology; Visit Provider Internal Medicine Medical Oncology
DX: C50.812 Malignant neoplasm of overlapping sites of left female breast (principal); Z17.0 Estrogen receptor positive status [ER+]; C78.7 Secondary malignant neoplasm of liver and intrahepatic bile duct
CPT/HCPCS: 36415; 80053; 86300; 83036; 85025

== ENCOUNTER 2024-03-07 02:23 | Outpatient (CLI) | payer OTHER, SELFPAY ==
[2024-03-07 08:43] LABS: Abs Immature Grans 0.02 10^3/uL (0.0-0.06); Absolute Basophil Count 0.08 10^3/uL (0.0-0.2); Absolute Eosinophil Count 0.09 10^3/uL (0.0-0.7); Absolute Lymphocyte Count 1.54 10^3/uL (1.2-3.4); Absolute Monocyte Count 0.42 10^3/uL (0.1-0.8); Absolute Neutrophil Count 2.91 10^3/uL (1.2-6.7); Basophils % 1.6 %; Eosinophils % 1.8 %; HCT 40.5 % (36.0-46.0); Immature Grans % 0.4 %; Lymphocytes % 30.4 %; MCH 31.5 pg (27.0-33.0); MCHC 32.1 % (32.0-36.0); MCV 98 fL (80-95); MPV 10.2 fL (8.0-11.0); Monocytes % 8.3 %; Neutrophils % 57.5 %; Platelet Count 450 10^3/uL (130-400); RBC 4.13 10^6/uL (3.93-5.22); RDW 18.9 % (11.7-14.6); RDW-SD 68.1 fL; WBC 5.06 10^3/uL (4.4-10.8)
[2024-03-07 08:58] LABS: ALT 34 U/L (14-59); AST 27 U/L (15-37); Albumin 3.7 g/dL (3.4-5.0); Alkaline Phosphatase 127 U/L (46-116); Anion Gap 10.2 mmol/L (3-11); BUN 6 mg/dL (7-18); CO2 26.8 mmol/L (21.0-32.0); CREATININE 0.9 mg/dL (0.55-1.02); Calcium 9.2 mg/dL (8.5-10.1); Chloride 104 mmol/L (98-107); Estimated GFR 74.57 (mL/min/1.73m2); Glucose 131 mg/dL (74-106); Potassium 3.9 mmol/L (3.5-5.1); Sodium 141 mmol/L (136-145); Total Protein 7.8 g/dL (6.4-8.2)
[2024-03-09 12:09] LABS: Cancer Ag 15-3 59 U/mL (<30)
== END 2024-03-07 02:24 | disposition home or self-care (01) ==
LOC: LBO 02:23
PROVIDERS: PCP Internal Medicine Medical Oncology; Visit Provider Internal Medicine Medical Oncology
DX: C50.812 Malignant neoplasm of overlapping sites of left female breast (principal); Z17.0 Estrogen receptor positive status [ER+]; C78.7 Secondary malignant neoplasm of liver and intrahepatic bile duct
CPT/HCPCS: 36415; 80053; 86300; 85025

== ENCOUNTER 2024-04-10 02:52 | Outpatient (CLI) | payer OTHER, SELFPAY ==
[2024-04-10 09:15] LABS: Abs Immature Grans 0.02 10^3/uL (0.0-0.06); Absolute Basophil Count 0.08 10^3/uL (0.0-0.2); Absolute Eosinophil Count 0.15 10^3/uL (0.0-0.7); Absolute Lymphocyte Count 1.66 10^3/uL (1.2-3.4); Absolute Monocyte Count 0.39 10^3/uL (0.1-0.8); Absolute Neutrophil Count 3.58 10^3/uL (1.2-6.7); Basophils % 1.4 %; Eosinophils % 2.6 %; HCT 40.9 % (36.0-46.0); Immature Grans % 0.3 %; Lymphocytes % 28.2 %; MCH 30.8 pg (27.0-33.0); MCHC 31.8 % (32.0-36.0); MCV 97 fL (80-95); MPV 9.6 fL (8.0-11.0); Monocytes % 6.6 %; Neutrophils % 60.9 %; Platelet Count 526 10^3/uL (130-400); RBC 4.22 10^6/uL (3.93-5.22); RDW-SD 71.7 fL; WBC 5.88 10^3/uL (4.4-10.8)
[2024-04-10 09:30] LABS: ALT 30 U/L (14-59); AST 26 U/L (15-37); Albumin 3.7 g/dL (3.4-5.0); Alkaline Phosphatase 128 U/L (46-116); Anion Gap 11.4 mmol/L (3-11); BUN 3 mg/dL (7-18); Bilirubin, Total 0.37 mg/dL (0.2-1.0); CO2 26.6 mmol/L (21.0-32.0); CREATININE 0.8 mg/dL (0.55-1.02); Calcium 9.3 mg/dL (8.5-10.1); Chloride 102 mmol/L (98-107); Estimated GFR 85.35 (mL/min/1.73m2); Glucose 126 mg/dL (74-106); Potassium 3.9 mmol/L (3.5-5.1); Sodium 140 mmol/L (136-145); Total Protein 7.9 g/dL (6.4-8.2)
[2024-04-10 18:46] LABS: Hemoglobin A1C 6.7 % (<5.7)
[2024-04-11 20:12] LABS: Cancer Ag 15-3 64 U/mL (<30)
== END 2024-04-10 02:53 | disposition home or self-care (01) ==
LOC: LBO 02:53
PROVIDERS: PCP Internal Medicine Medical Oncology; Visit Provider Internal Medicine Medical Oncology
DX: C50.812 Malignant neoplasm of overlapping sites of left female breast (principal); Z17.0 Estrogen receptor positive status [ER+]; C78.7 Secondary malignant neoplasm of liver and intrahepatic bile duct
CPT/HCPCS: 36415; 80053; 86300; 83036; 85025

== ENCOUNTER 2024-05-08 05:16 | Outpatient (CLI) | payer OTHER, SELFPAY ==
[2024-05-08 14:50] LABS: Abs Immature Grans 0.02 10^3/uL (0.0-0.06); Absolute Basophil Count 0.06 10^3/uL (0.0-0.2); Absolute Eosinophil Count 0.25 10^3/uL (0.0-0.7); Absolute Lymphocyte Count 1.76 10^3/uL (1.2-3.4); Absolute Monocyte Count 0.51 10^3/uL (0.1-0.8); Absolute Neutrophil Count 5.68 10^3/uL (1.2-6.7); Basophils % 0.7 %; HCT 39.5 % (36.0-46.0); HGB 12.7 g/dL (11.2-15.7); Immature Grans % 0.2 %; Lymphocytes % 21.3 %; MCH 29.8 pg (27.0-33.0); MCHC 32.2 % (32.0-36.0); MCV 93 fL (80-95); MPV 9.8 fL (8.0-11.0); Monocytes % 6.2 %; Neutrophils % 68.6 %; Platelet Count 498 10^3/uL (130-400); RBC 4.26 10^6/uL (3.93-5.22); RDW 19.5 % (11.7-14.6); RDW-SD 67.3 fL; WBC 8.28 10^3/uL (4.4-10.8)
[2024-05-08 15:06] LABS: ALT 22 U/L (14-59); AST 19 U/L (15-37); Albumin 2.9 g/dL (3.4-5.0); Alkaline Phosphatase 131 U/L (46-116); Anion Gap 7.9 mmol/L (3-11); BUN 5 mg/dL (7-18); Bilirubin, Total 0.28 mg/dL (0.2-1.0); CO2 29.1 mmol/L (21.0-32.0); CREATININE 0.7 mg/dL (0.55-1.02); Calcium 9.4 mg/dL (8.5-10.1); Chloride 102 mmol/L (98-107); Estimated GFR 100.19 (mL/min/1.73m2); Glucose 166 mg/dL (74-106); Sodium 139 mmol/L (136-145); Total Protein 7.2 g/dL (6.4-8.2)
[2024-05-08 15:18] LABS: Potassium 2.9 mmol/L (3.5-5.1)
[2024-05-09 18:17] LABS: Cancer Ag 15-3 64 U/mL (<30)
== END 2024-05-08 05:17 | disposition home or self-care (01) ==
PROVIDERS: PCP Internal Medicine Medical Oncology; Visit Provider Internal Medicine Medical Oncology
DX: C50.812 Malignant neoplasm of overlapping sites of left female breast (principal); Z17.0 Estrogen receptor positive status [ER+]; C78.7 Secondary malignant neoplasm of liver and intrahepatic bile duct; C79.51 Secondary malignant neoplasm of bone
CPT/HCPCS: 36415; 80053; 86300; 85025

== ENCOUNTER 2024-06-05 03:41 | Outpatient (CLI) | payer OTHER, SELFPAY ==
[2024-06-05 13:09] LABS: Abs Immature Grans 0.02 10^3/uL (0.0-0.06); Absolute Basophil Count 0.09 10^3/uL (0.0-0.2); Absolute Eosinophil Count 0.28 10^3/uL (0.0-0.7); Absolute Lymphocyte Count 1.83 10^3/uL (1.2-3.4); Absolute Neutrophil Count 3.49 10^3/uL (1.2-6.7); Basophils % 1.4 %; Eosinophils % 4.5 %; HCT 41.2 % (36.0-46.0); HGB 13.3 g/dL (11.2-15.7); Immature Grans % 0.3 %; Lymphocytes % 29.5 %; MCH 29.8 pg (27.0-33.0); MCHC 32.3 % (32.0-36.0); MCV 92 fL (80-95); MPV 9.2 fL (8.0-11.0); Monocytes % 8.1 %; Neutrophils % 56.2 %; Platelet Count 410 10^3/uL (130-400); RBC 4.46 10^6/uL (3.93-5.22); RDW 21.1 % (11.7-14.6); RDW-SD 71.9 fL; WBC 6.21 10^3/uL (4.4-10.8)
[2024-06-05 13:24] LABS: Anisocytosis 1+
[2024-06-05 13:28] LABS: ALT 27 U/L (14-59); AST 27 U/L (15-37); Albumin 3.4 g/dL (3.4-5.0); Alkaline Phosphatase 135 U/L (46-116); Anion Gap 9.7 mmol/L (3-11); BUN 3 mg/dL (7-18); Bilirubin, Total 0.47 mg/dL (0.2-1.0); CO2 28.3 mmol/L (21.0-32.0); CREATININE 0.9 mg/dL (0.55-1.02); Calcium 9.4 mg/dL (8.5-10.1); Chloride 101 mmol/L (98-107); Glucose 123 mg/dL (74-106); Potassium 3.7 mmol/L (3.5-5.1); Sodium 139 mmol/L (136-145); Total Protein 7.7 g/dL (6.4-8.2)
[2024-06-07 15:25] LABS: Cancer Ag 15-3 66 U/mL (<30)
== END 2024-06-05 03:42 | disposition home or self-care (01) ==
LOC: LBO 03:41
PROVIDERS: PCP Internal Medicine Medical Oncology; Visit Provider Nurse Practitioner Family
DX: C50.812 Malignant neoplasm of overlapping sites of left female breast (principal); Z17.0 Estrogen receptor positive status [ER+]; C78.7 Secondary malignant neoplasm of liver and intrahepatic bile duct; C79.51 Secondary malignant neoplasm of bone
CPT/HCPCS: 36415; 80053; 86300; 85025

== ENCOUNTER 2024-07-03 03:06 | Outpatient (CLI) | payer OTHER, SELFPAY ==
[2024-07-03 12:52] LABS: Abs Immature Grans 0.01 10^3/uL (0.0-0.06); Absolute Basophil Count 0.07 10^3/uL (0.0-0.2); Absolute Eosinophil Count 0.12 10^3/uL (0.0-0.7); Absolute Lymphocyte Count 1.44 10^3/uL (1.2-3.4); Absolute Monocyte Count 0.44 10^3/uL (0.1-0.8); Absolute Neutrophil Count 3.78 10^3/uL (1.2-6.7); Basophils % 1.2 %; HCT 40.5 % (36.0-46.0); HGB 13.4 g/dL (11.2-15.7); Immature Grans % 0.2 %; Lymphocytes % 24.6 %; MCH 30.5 pg (27.0-33.0); MCHC 33.1 % (32.0-36.0); MCV 92 fL (80-95); MPV 9.9 fL (8.0-11.0); Monocytes % 7.5 %; Neutrophils % 64.5 %; Platelet Count 421 10^3/uL (130-400); RDW 19.9 % (11.7-14.6); RDW-SD 67.7 fL; WBC 5.86 10^3/uL (4.4-10.8)
[2024-07-03 12:59] LABS: ALT 30 U/L (14-59); AST 32 U/L (15-37); Albumin 3.6 g/dL (3.4-5.0); Alkaline Phosphatase 154 U/L (46-116); Anion Gap 14.8 mmol/L (3-11); BUN 5 mg/dL (7-18); Bilirubin, Total 0.43 mg/dL (0.2-1.0); CO2 25.2 mmol/L (21.0-32.0); CREATININE 0.8 mg/dL (0.55-1.02); Calcium 9.6 mg/dL (8.5-10.1); Chloride 104 mmol/L (98-107); Estimated GFR 85.35 (mL/min/1.73m2); Glucose 111 mg/dL (74-106); Sodium 144 mmol/L (136-145); Total Protein 8.1 g/dL (6.4-8.2)
[2024-07-04 15:10] LABS: Cancer Ag 15-3 77 U/mL (<30)
== END 2024-07-03 03:07 | disposition home or self-care (01) ==
LOC: LBO 03:06
PROVIDERS: PCP Internal Medicine Medical Oncology; Visit Provider Nurse Practitioner Family
DX: C79.51 Secondary malignant neoplasm of bone (principal); C50.812 Malignant neoplasm of overlapping sites of left female breast; Z17.0 Estrogen receptor positive status [ER+]; C78.7 Secondary malignant neoplasm of liver and intrahepatic bile duct
CPT/HCPCS: 36415; 80053; 86300; 85025

== ENCOUNTER 2024-08-10 02:01 | Outpatient (CLI) | payer OTHER, SELFPAY ==
[2024-08-10 13:34] LABS: Abs Immature Grans 0.03 10^3/uL (0.0-0.06); Absolute Basophil Count 0.09 10^3/uL (0.0-0.2); Absolute Eosinophil Count 0.15 10^3/uL (0.0-0.7); Absolute Lymphocyte Count 1.52 10^3/uL (1.2-3.4); Absolute Monocyte Count 0.49 10^3/uL (0.1-0.8); Absolute Neutrophil Count 5.95 10^3/uL (1.2-6.7); Basophils % 1.1 %; Eosinophils % 1.8 %; HCT 38.7 % (36.0-46.0); Immature Grans % 0.4 %; Lymphocytes % 18.5 %; MCH 31.1 pg (27.0-33.0); MCHC 33.6 % (32.0-36.0); MCV 93 fL (80-95); MPV 9.5 fL (8.0-11.0); Neutrophils % 72.2 %; Platelet Count 385 10^3/uL (130-400); RBC 4.18 10^6/uL (3.93-5.22); RDW 19.8 % (11.7-14.6); RDW-SD 66.6 fL; WBC 8.23 10^3/uL (4.4-10.8)
[2024-08-10 14:43] LABS: ALT 24 U/L (14-59); AST 27 U/L (15-37); Albumin 3.2 g/dL (3.4-5.0); Alkaline Phosphatase 152 U/L (46-116); Anion Gap 10.5 mmol/L (3-11); BUN 5 mg/dL (7-18); Bilirubin, Total 0.33 mg/dL (0.2-1.0); CO2 28.5 mmol/L (21.0-32.0); CREATININE 0.8 mg/dL (0.55-1.02); Calcium 9.6 mg/dL (8.5-10.1); Chloride 103 mmol/L (98-107); Estimated GFR 85.35 (mL/min/1.73m2); Glucose 129 mg/dL (74-106); Potassium 3.6 mmol/L (3.5-5.1); Sodium 142 mmol/L (136-145); Total Protein 7.3 g/dL (6.4-8.2)
[2024-08-13 16:39] LABS: Cancer Ag 15-3 89 U/mL (<30)
== END 2024-08-10 02:02 | disposition home or self-care (01) ==
LOC: LBO 02:01
PROVIDERS: PCP Internal Medicine Medical Oncology; Visit Provider Nurse Practitioner Family
DX: C79.51 Secondary malignant neoplasm of bone (principal); C50.812 Malignant neoplasm of overlapping sites of left female breast; Z17.0 Estrogen receptor positive status [ER+]; C78.7 Secondary malignant neoplasm of liver and intrahepatic bile duct
CPT/HCPCS: 36415; 80053; 86300; 85025

== ENCOUNTER 2024-09-07 01:26 | Outpatient (CLI) | payer OTHER, SELFPAY ==
[2024-09-07 13:40] LABS: Abs Immature Grans 0.02 10^3/uL (0.0-0.06); Absolute Basophil Count 0.09 10^3/uL (0.0-0.2); Absolute Eosinophil Count 0.21 10^3/uL (0.0-0.7); Absolute Lymphocyte Count 2.24 10^3/uL (1.2-3.4); Absolute Monocyte Count 0.51 10^3/uL (0.1-0.8); Absolute Neutrophil Count 4.34 10^3/uL (1.2-6.7); Basophils % 1.2 %; Eosinophils % 2.8 %; HGB 12.4 g/dL (11.2-15.7); Immature Grans % 0.3 %; Lymphocytes % 30.2 %; MCHC 32.6 % (32.0-36.0); MCV 95 fL (80-95); MPV 9.2 fL (8.0-11.0); Monocytes % 6.9 %; Neutrophils % 58.6 %; Platelet Count 463 10^3/uL (130-400); RDW 18.5 % (11.7-14.6); RDW-SD 65.1 fL; WBC 7.41 10^3/uL (4.4-10.8)
[2024-09-07 13:55] LABS: ALT 27 U/L (14-59); AST 28 U/L (15-37); Alkaline Phosphatase 163 U/L (46-116); Anion Gap 8.9 mmol/L (3-11); BUN 6 mg/dL (7-18); Bilirubin, Total 0.23 mg/dL (0.2-1.0); CO2 28.1 mmol/L (21.0-32.0); CREATININE 0.8 mg/dL (0.55-1.02); Calcium 9.4 mg/dL (8.5-10.1); Chloride 106 mmol/L (98-107); Estimated GFR 85.35 (mL/min/1.73m2); Glucose 140 mg/dL (74-106); Potassium 3.9 mmol/L (3.5-5.1); Sodium 143 mmol/L (136-145); Total Protein 6.8 g/dL (6.4-8.2)
[2024-09-10 11:15] LABS: Cancer Ag 15-3 111 U/mL (<30)
== END 2024-09-07 01:27 | disposition home or self-care (01) ==
LOC: LBO 01:26
PROVIDERS: PCP Internal Medicine Medical Oncology; Visit Provider Nurse Practitioner Family
DX: C50.812 Malignant neoplasm of overlapping sites of left female breast (principal); Z17.0 Estrogen receptor positive status [ER+]; C78.7 Secondary malignant neoplasm of liver and intrahepatic bile duct; C79.51 Secondary malignant neoplasm of bone
CPT/HCPCS: 36415; 80053; 86300; 85025

== ENCOUNTER 2024-10-09 00:47 | Outpatient (CLI) | payer OTHER, SELFPAY ==
[2024-10-09 09:27] LABS: Abs Immature Grans 0.01 10^3/uL (0.0-0.06); Absolute Basophil Count 0.04 10^3/uL (0.0-0.2); Absolute Eosinophil Count 0.12 10^3/uL (0.0-0.7); Absolute Lymphocyte Count 1.18 10^3/uL (1.2-3.4); Basophils % 0.9 %; Eosinophils % 2.6 %; HCT 40.3 % (36.0-46.0); HGB 13.3 g/dL (11.2-15.7); Immature Grans % 0.2 %; Lymphocytes % 25.4 %; MCH 30.8 pg (27.0-33.0); MCV 93 fL (80-95); MPV 9.6 fL (8.0-11.0); Monocytes % 10.8 %; Neutrophils % 60.1 %; Platelet Count 396 10^3/uL (130-400); RBC 4.32 10^6/uL (3.93-5.22); RDW 18.5 % (11.7-14.6); RDW-SD 63.2 fL; WBC 4.65 10^3/uL (4.4-10.8)
[2024-10-09 10:03] LABS: ALT 62 U/L (14-59); AST 55 U/L (15-37); Albumin 3.3 g/dL (3.4-5.0); Alkaline Phosphatase 201 U/L (46-116); Anion Gap 10.8 mmol/L (3-11); BUN 6 mg/dL (7-18); Bilirubin, Total 0.38 mg/dL (0.2-1.0); CO2 27.2 mmol/L (21.0-32.0); CREATININE 0.9 mg/dL (0.55-1.02); Calcium 9.4 mg/dL (8.5-10.1); Chloride 103 mmol/L (98-107); Glucose 164 mg/dL (74-106); Potassium 3.5 mmol/L (3.5-5.1); Sodium 141 mmol/L (136-145); Total Protein 7.4 g/dL (6.4-8.2)
[2024-10-09 11:43] LABS: Amylase 37 U/L (25-115); Lipase 44 U/L (<78); Magnesium 1.6 mg/dL (1.8-2.4)
[2024-10-11 10:04] LABS: Cancer Ag 15-3 137 U/mL (<30)
== END 2024-10-09 00:48 | disposition home or self-care (01) ==
PROVIDERS: PCP Internal Medicine Medical Oncology; Visit Provider Nurse Practitioner Family
DX: C79.51 Secondary malignant neoplasm of bone (principal); C78.7 Secondary malignant neoplasm of liver and intrahepatic bile duct; C50.812 Malignant neoplasm of overlapping sites of left female breast; Z17.0 Estrogen receptor positive status [ER+]
CPT/HCPCS: 36415; 80053; 83690; 86300; 82150; 83735; 85025

== ENCOUNTER 2024-11-13 03:08 | Outpatient (CLI) | payer OTHER, SELFPAY ==
[2024-11-13 13:01] LABS: Abs Immature Grans 0.03 10^3/uL (0.0-0.06); Absolute Basophil Count 0.06 10^3/uL (0.0-0.2); Absolute Eosinophil Count 0.18 10^3/uL (0.0-0.7); Absolute Lymphocyte Count 1.63 10^3/uL (1.2-3.4); Absolute Monocyte Count 0.52 10^3/uL (0.1-0.8); Absolute Neutrophil Count 2.76 10^3/uL (1.2-6.7); Basophils % 1.2 %; Eosinophils % 3.5 %; HCT 40.9 % (36.0-46.0); Immature Grans % 0.6 %; Lymphocytes % 31.5 %; MCH 29.3 pg (27.0-33.0); MCHC 31.8 % (32.0-36.0); MCV 92 fL (80-95); MPV 9.3 fL (8.0-11.0); Neutrophils % 53.2 %; Platelet Count 539 10^3/uL (130-400); RBC 4.43 10^6/uL (3.93-5.22); RDW-SD 57.7 fL; WBC 5.18 10^3/uL (4.4-10.8)
[2024-11-13 13:28] LABS: ALT 37 U/L (14-59); AST 46 U/L (15-37); Albumin 2.9 g/dL (3.4-5.0); Alkaline Phosphatase 221 U/L (46-116); Amylase 44 U/L (25-115); Anion Gap 12.5 mmol/L (3-11); BUN 2 mg/dL (7-18); Bilirubin, Total 0.2 mg/dL (0.2-1.0); CO2 28.5 mmol/L (21.0-32.0); CREATININE 0.7 mg/dL (0.55-1.02); Calcium 9.3 mg/dL (8.5-10.1); Chloride 102 mmol/L (98-107); Estimated GFR 100.19 (mL/min/1.73m2); Glucose 147 mg/dL (74-106); Lipase 41 U/L (<78); Magnesium 1.6 mg/dL (1.8-2.4); Sodium 143 mmol/L (136-145); Total Protein 7.6 g/dL (6.4-8.2)
[2024-11-16 14:30] LABS: Cancer Ag 15-3 239 U/mL (<30)
== END 2024-11-13 03:09 | disposition home or self-care (01) ==
PROVIDERS: PCP Internal Medicine Medical Oncology; Visit Provider Nurse Practitioner Family
DX: C79.51 Secondary malignant neoplasm of bone (principal); C78.7 Secondary malignant neoplasm of liver and intrahepatic bile duct; C50.812 Malignant neoplasm of overlapping sites of left female breast; Z17.0 Estrogen receptor positive status [ER+]
CPT/HCPCS: 36415; 80053; 83690; 86300; 82150; 83735; 85025

== ENCOUNTER 2024-12-11 10:00 | Outpatient (CLI) | payer OTHER, SELFPAY ==
[2024-12-11 10:02] LABS: Abs Immature Grans 0.02 10^3/uL (0.0-0.06); Absolute Basophil Count 0.13 10^3/uL (0.0-0.2); Absolute Eosinophil Count 0.24 10^3/uL (0.0-0.7); Absolute Lymphocyte Count 1.47 10^3/uL (1.2-3.4); Absolute Monocyte Count 0.76 10^3/uL (0.1-0.8); Absolute Neutrophil Count 6.11 10^3/uL (1.2-6.7); Basophils % 1.5 %; Eosinophils % 2.7 %; HCT 39.9 % (36.0-46.0); HGB 12.9 g/dL (11.2-15.7); Immature Grans % 0.2 %; Lymphocytes % 16.8 %; MCH 30.3 pg (27.0-33.0); MCHC 32.3 % (32.0-36.0); MCV 94 fL (80-95); MPV 10.2 fL (8.0-11.0); Monocytes % 8.7 %; Neutrophils % 70.1 %; Platelet Count 407 10^3/uL (130-400); RBC 4.26 10^6/uL (3.93-5.22); RDW 17.8 % (11.7-14.6); RDW-SD 61.1 fL; WBC 8.73 10^3/uL (4.4-10.8)
[2024-12-11 10:21] LABS: ALT 38 U/L (14-59); AST 112 U/L (15-37); Albumin 3.3 g/dL (3.4-5.0); Alkaline Phosphatase 211 U/L (46-116); Anion Gap 10.7 mmol/L (3-11); BUN 10 mg/dL (7-18); Bilirubin, Total 0.4 mg/dL (0.2-1.0); CO2 26.3 mmol/L (21.0-32.0); CREATININE 0.8 mg/dL (0.55-1.02); Calcium 9.7 mg/dL (8.5-10.1); Chloride 104 mmol/L (98-107); Estimated GFR 85.35 (mL/min/1.73m2); Glucose 126 mg/dL (74-106); Potassium 4.5 mmol/L (3.5-5.1); Sodium 141 mmol/L (136-145); Total Protein 7.7 g/dL (6.4-8.2)
[2024-12-14 14:52] LABS: Cancer Ag 15-3 237 U/mL (<30)
== END 2024-12-11 10:01 | disposition home or self-care (01) ==
LOC: LBO 10:00
PROVIDERS: PCP Internal Medicine Medical Oncology; Visit Provider Nurse Practitioner Family
DX: C79.51 Secondary malignant neoplasm of bone (principal); C78.7 Secondary malignant neoplasm of liver and intrahepatic bile duct; C50.812 Malignant neoplasm of overlapping sites of left female breast; Z17.0 Estrogen receptor positive status [ER+]
CPT/HCPCS: 36415; 80053; 86300; 85025

== ENCOUNTER 2025-01-10 14:43 | Outpatient (CLI) | payer OTHER, SELFPAY ==
[2025-01-10 13:27] LABS: Abs Immature Grans 0.01 10^3/uL (0.0-0.06); Absolute Basophil Count 0.06 10^3/uL (0.0-0.2); Absolute Lymphocyte Count 1.32 10^3/uL (1.2-3.4); Absolute Monocyte Count 0.62 10^3/uL (0.1-0.8); Absolute Neutrophil Count 5.08 10^3/uL (1.2-6.7); Basophils % 0.8 %; Eosinophils % 1.4 %; HCT 38.1 % (36.0-46.0); HGB 12.5 g/dL (11.2-15.7); Immature Grans % 0.1 %; Lymphocytes % 18.4 %; MCH 29.8 pg (27.0-33.0); MCHC 32.8 % (32.0-36.0); MCV 91 fL (80-95); Monocytes % 8.6 %; Neutrophils % 70.7 %; Platelet Count 411 10^3/uL (130-400); RDW 17.8 % (11.7-14.6); RDW-SD 59.1 fL; WBC 7.19 10^3/uL (4.4-10.8)
[2025-01-10 13:41] LABS: ALT 47 U/L (14-59); AST 55 U/L (15-37); Albumin 3.3 g/dL (3.4-5.0); Alkaline Phosphatase 203 U/L (46-116); Anion Gap 10.1 mmol/L (3-11); BUN 8 mg/dL (7-18); Bilirubin, Total 0.4 mg/dL (0.2-1.0); CO2 25.9 mmol/L (21.0-32.0); CREATININE 0.9 mg/dL (0.55-1.02); Calcium 9.8 mg/dL (8.5-10.1); Chloride 102 mmol/L (98-107); Glucose 122 mg/dL (74-106); Potassium 3.6 mmol/L (3.5-5.1); Sodium 138 mmol/L (136-145); Total Protein 7.5 g/dL (6.4-8.2)
[2025-01-14 15:07] LABS: Cancer Ag 15-3 216 U/mL (<30)
== END 2025-01-10 14:44 | disposition home or self-care (01) ==
LOC: LBO 14:58
PROVIDERS: PCP Internal Medicine Medical Oncology; Visit Provider Nurse Practitioner Family
DX: C79.51 Secondary malignant neoplasm of bone (principal); C78.7 Secondary malignant neoplasm of liver and intrahepatic bile duct; C50.812 Malignant neoplasm of overlapping sites of left female breast; Z17.0 Estrogen receptor positive status [ER+]
CPT/HCPCS: 36415; 80053; 86300; 85025

== ENCOUNTER 2025-02-27 00:43 | Outpatient (RCR) | payer OTHER, SELFPAY ==
[2025-02-05 11:36] LABS: Abs Immature Grans 0.02 10^3/uL (0.0-0.06); Absolute Basophil Count 0.09 10^3/uL (0.0-0.2); Absolute Eosinophil Count 0.19 10^3/uL (0.0-0.7); Absolute Lymphocyte Count 1.22 10^3/uL (1.2-3.4); Absolute Monocyte Count 0.52 10^3/uL (0.1-0.8); Basophils % 1.4 %; HCT 34.5 % (36.0-46.0); HGB 11.2 g/dL (11.2-15.7); Immature Grans % 0.3 %; Lymphocytes % 18.9 %; MCHC 32.5 % (32.0-36.0); MCV 93 fL (80-95); MPV 9.7 fL (8.0-11.0); Monocytes % 8.1 %; Neutrophils % 68.3 %; Platelet Count 425 10^3/uL (130-400); RBC 3.73 10^6/uL (3.93-5.22); RDW 18.8 % (11.7-14.6); RDW-SD 63.3 fL; WBC 6.44 10^3/uL (4.4-10.8)
[2025-02-05] MEDS: Normal Saline-STERILE FIELD 0.9% 10 ML SYR (11:46)
[2025-02-05 12:04] LABS: ALT 34 U/L (14-59); AST 53 U/L (15-37); Albumin 2.9 g/dL (3.4-5.0); Alkaline Phosphatase 267 U/L (46-116); Anion Gap 8.2 mmol/L (3-11); BUN 5 mg/dL (7-18); Bilirubin, Total 0.4 mg/dL (0.2-1.0); CO2 28.8 mmol/L (21.0-32.0); CREATININE 0.6 mg/dL (0.55-1.02); Calcium 8.8 mg/dL (8.5-10.1); Chloride 104 mmol/L (98-107); Estimated GFR 103.98 (mL/min/1.73m2); Glucose 97 mg/dL (74-106); Potassium 3.7 mmol/L (3.5-5.1); Sodium 141 mmol/L (136-145); Total Protein 6.8 g/dL (6.4-8.2)
[2025-02-06 17:39] LABS: Cancer Ag 15-3 279 U/mL (<30)
[2025-02-27 10:07] LABS: Abs Immature Grans 0.06 10^3/uL (0.0-0.06); Absolute Basophil Count 0.11 10^3/uL (0.0-0.2); Absolute Eosinophil Count 0.68 10^3/uL (0.0-0.7); Absolute Lymphocyte Count 1.46 10^3/uL (1.2-3.4); Absolute Monocyte Count 1.26 10^3/uL (0.1-0.8); Absolute Neutrophil Count 4.03 10^3/uL (1.2-6.7); Basophils % 1.4 %; Eosinophils % 8.9 %; HCT 36.2 % (36.0-46.0); HGB 11.9 g/dL (11.2-15.7); Immature Grans % 0.8 %; Lymphocytes % 19.2 %; MCH 30.7 pg (27.0-33.0); MCHC 32.9 % (32.0-36.0); MCV 93 fL (80-95); MPV 9.7 fL (8.0-11.0); Monocytes % 16.6 %; Neutrophils % 53.1 %; Platelet Count 647 10^3/uL (130-400); RBC 3.88 10^6/uL (3.93-5.22); RDW-SD 65.3 fL
[2025-02-27 10:29] LABS: ALT 37 U/L (14-59); AST 57 U/L (15-37); Albumin 2.8 g/dL (3.4-5.0); Alkaline Phosphatase 309 U/L (46-116); BUN 4 mg/dL (7-18); Bilirubin, Total 0.3 mg/dL (0.2-1.0); CREATININE 0.6 mg/dL (0.55-1.02); Calcium 8.9 mg/dL (8.5-10.1); Chloride 101 mmol/L (98-107); Estimated GFR 103.98 (mL/min/1.73m2); Glucose 109 mg/dL (74-106); Sodium 142 mmol/L (136-145); Total Protein 6.9 g/dL (6.4-8.2)
[2025-02-27] MEDS: Normal Saline-STERILE FIELD 0.9% 10 ML SYR (12:13)
[2025-03-01 11:15] LABS: Cancer Ag 15-3 405 U/mL (<30)
== END 2025-03-04 23:59 | disposition home or self-care (01) ==
LOC: INF 00:43
PROVIDERS: PCP Internal Medicine Medical Oncology; Visit Provider Nurse Practitioner Family
DX: C79.51 Secondary malignant neoplasm of bone (principal); C78.7 Secondary malignant neoplasm of liver and intrahepatic bile duct; C50.819 Malignant neoplasm of overlapping sites of unspecified female breast; Z17.0 Estrogen receptor positive status [ER+]
CPT/HCPCS: 36591; 80053; 86300; 96523; 85025

== ENCOUNTER 2025-03-22 10:00 | Outpatient (RCR) | payer OTHER, SELFPAY ==
[2025-03-20] MEDS: Normal Saline-STERILE FIELD 0.9% 10 ML SYR IVP (10:16)
[2025-03-20 10:17] LABS: Abs Immature Grans 0.08 10^3/uL (0.0-0.06); HCT 33.9 % (36.0-46.0); HGB 11.0 g/dL (11.2-15.7); Immature Grans % 1.3 %; MCH 30.2 pg (27.0-33.0); MCHC 32.4 % (32.0-36.0); MCV 93 fL (80-95); MPV 9.5 fL (8.0-11.0); RBC 3.64 10^6/uL (3.93-5.22); RDW 19.3 % (11.7-14.6); RDW-SD 65.6 fL; WBC 6.40 10^3/uL (4.4-10.8)
[2025-03-20 10:38] LABS: ALT 40 U/L (14-59); AST 49 U/L (15-37); Albumin 2.5 g/dL (3.4-5.0); Alkaline Phosphatase 268 U/L (46-116); Anion Gap 13.4 mmol/L (3-11); BUN 4 mg/dL (7-18); Bilirubin, Total 0.2 mg/dL (0.2-1.0); CO2 25.6 mmol/L (21.0-32.0); Calcium 8.4 mg/dL (8.5-10.1); Chloride 105 mmol/L (98-107); Estimated GFR 99.57 (mL/min/1.73m2); Glucose 109 mg/dL (74-106); Sodium 144 mmol/L (136-145); Total Protein 6.5 g/dL (6.4-8.2)
[2025-03-20 10:42] LABS: Potassium 2.4 mmol/L (3.5-5.1)
[2025-03-20 10:48] LABS: Platelet Count 925 10^3/uL (130-400); RBC Morphology Normal
[2025-03-20 12:06] LABS: Ferritin 135 ng/mL (8-252); Magnesium 1.3 mg/dL (1.8-2.4)
[2025-03-21 16:08] LABS: Cancer Ag 15-3 293 U/mL (<30)
[2025-03-22] MEDS: Normal Saline-STERILE FIELD 0.9% 10 ML SYR IVP (10:39)
[2025-03-22 10:40] LABS: Abs Immature Grans 0.05 10^3/uL (0.0-0.06); HCT 34.8 % (36.0-46.0); HGB 11.5 g/dL (11.2-15.7); Immature Grans % 0.6 %; MCH 30.4 pg (27.0-33.0); MCHC 33.0 % (32.0-36.0); MCV 92 fL (80-95); MPV 9.4 fL (8.0-11.0); RBC 3.78 10^6/uL (3.93-5.22); RDW 19.3 % (11.7-14.6); RDW-SD 64.6 fL; WBC 8.47 10^3/uL (4.4-10.8)
[2025-03-22 11:08] LABS: Platelet Count 885 10^3/uL (130-400)
[2025-03-22 11:10] LABS: ALT 45 U/L (14-59); AST 78 U/L (15-37); Albumin 2.5 g/dL (3.4-5.0); Alkaline Phosphatase 253 U/L (46-116); Anion Gap 14.4 mmol/L (3-11); BUN 9 mg/dL (7-18); Bilirubin, Total 0.2 mg/dL (0.2-1.0); CO2 24.6 mmol/L (21.0-32.0); Calcium 8.9 mg/dL (8.5-10.1); Chloride 105 mmol/L (98-107); Estimated GFR 99.57 (mL/min/1.73m2); Glucose 136 mg/dL (74-106); Magnesium 2.0 mg/dL (1.8-2.4); Potassium 3.4 mmol/L (3.5-5.1); Sodium 144 mmol/L (136-145); Total Protein 6.4 g/dL (6.4-8.2)
== END 2025-04-04 23:59 | disposition home or self-care (01) ==
LOC: INF 10:00
PROVIDERS: PCP Internal Medicine Medical Oncology; Visit Provider Nurse Practitioner Family
DX: C79.51 Secondary malignant neoplasm of bone (principal); C78.7 Secondary malignant neoplasm of liver and intrahepatic bile duct; C50.812 Malignant neoplasm of overlapping sites of left female breast; Z17.0 Estrogen receptor positive status [ER+]; E87.6 Hypokalemia; E83.42 Hypomagnesemia
CPT/HCPCS: 36591; 80053; 86300; 82728; 83735; 85025

== ENCOUNTER 2025-04-05 12:19 | Outpatient (RCR) | payer OTHER, SELFPAY ==
[2025-04-10 10:15] LABS: Abs Immature Grans 0.04 10^3/uL (0.0-0.06); HCT 32.2 % (36.0-46.0); HGB 10.2 g/dL (11.2-15.7); Immature Grans % 0.6 %; MCH 29.4 pg (27.0-33.0); MCHC 31.7 % (32.0-36.0); MCV 93 fL (80-95); MPV 9.5 fL (8.0-11.0); RBC 3.47 10^6/uL (3.93-5.22); RDW 19.6 % (11.7-14.6); RDW-SD 65.3 fL; WBC 6.91 10^3/uL (4.4-10.8)
[2025-04-10 10:32] LABS: ALT 53 U/L (14-59); AST 65 U/L (15-37); Albumin 2.6 g/dL (3.4-5.0); Alkaline Phosphatase 453 U/L (46-116); Anion Gap 11.6 mmol/L (3-11); BUN 5 mg/dL (7-18); Bilirubin, Total 0.2 mg/dL (0.2-1.0); CO2 25.4 mmol/L (21.0-32.0); Calcium 8.7 mg/dL (8.5-10.1); Chloride 105 mmol/L (98-107); Estimated GFR 99.57 (mL/min/1.73m2); Glucose 112 mg/dL (74-106); Magnesium 1.5 mg/dL (1.8-2.4); Platelet Count 835 10^3/uL (130-400); Potassium 3.7 mmol/L (3.5-5.1); Sodium 142 mmol/L (136-145); Total Protein 6.2 g/dL (6.4-8.2)
[2025-04-12 21:26] LABS: Cancer Ag 15-3 358 U/mL (<30)
== END 2025-05-05 23:59 | disposition home or self-care (01) ==
LOC: INF 12:19
PROVIDERS: PCP Internal Medicine Medical Oncology; Visit Provider Nurse Practitioner Family
DX: C79.51 Secondary malignant neoplasm of bone (principal); C78.7 Secondary malignant neoplasm of liver and intrahepatic bile duct; C50.812 Malignant neoplasm of overlapping sites of left female breast; Z17.0 Estrogen receptor positive status [ER+]; E87.6 Hypokalemia; E83.42 Hypomagnesemia
CPT/HCPCS: 80053; 86300; 83735; 85025

== ENCOUNTER 2025-04-30 02:06 | Outpatient (CLI) | payer OTHER, SELFPAY ==
--- NOTE | 2025-04-30 | DI.US_ITS ---
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 Ejection fraction is 55 to 60%. Wall motion is normal Normal right ventricular size and function Both atria are normal in size Aortic valve is sclerotic and trileaflet. There is trace aortic regurgitation Normal mitral valve with mild regurgitation Estimated right ventricular systolic pressure is 17 mmHg Wall motion Left Ventricle The left ventricle is normal size. The left ventricular systolic function is normal. The left ventricular ejection fraction is within the normal range. There is normal left ventricular wall thickness. There is normal LV segmental wall motion. There is no ventricular septal defect visualized. LVEF is 55-60%. Right Ventricle The right ventricle is normal size. The right ventricular systolic function is normal. Atria The left atrium size is normal. The right atrium size is normal. The interatrial septum is intact with no evidence for an atrial septal defect. Aortic Valve The Aortic valve is sclerotic. Aortic valve is trileaflet. There is no aortic valvular stenosis. Trace aortic regurgitation. Mitral Valve The mitral valve is normal in structure. No evidence of mitral valve stenosis. Mild mitral regurgitation. Tricuspid Valve The tricuspid valve is normal in structure. There is no tricuspid valve stenosis. Trace tricuspid regurgitation. The RVSP is 16.8mmHg. Pulmonic Valve The pulmonary valve is normal in structure. There is no pulmonic valvular stenosis. Trace pulmonic regurgitation. Great Vessels The aortic root is normal in size. The ascending aorta is normal in size. Aortic arch is not well visualized. IVC is normal in size and collapses >50% with inspiration. Pericardium There is no pericardial effusion. 2D Dimensions IVSD d PLAX 0.80 cm F: 0.6-1.0 Ao Root d 2.53 cm F: 2.7 - 3.3 LVPW d PLAX 0.81 cm F: 0.6 - 1.0 Ao Asc Diam d 3.04 cm F: 2.3 - 3.1 LVID d PLAX 4.52 cm F: 3.8 - 5.2 LVDs 3.14 cm F: 2.2 - 3.5 LV EF Teichholz 58.2 % FS 30.55 % LV EDV (Teich) 93.5 mL LV ESV (Teich) 39.1 mL M-Mode TAPSE 1.82 cm (M/F) >1.7 Auto EF LV EDV A4C 71.3 mL LV EDV A2C 87.5 mL LV EDV BP 79.7 mL LV ESV A4C 33.7 mL LV ESV A2C 39.5 mL LV ESV BP 36.8 mL LVEF(%) A4C 52.7 % LVEF(%) A2C 54.9 % LVEF(%) BP 53.9 % LV SV A4C 37.6 ml LV SV A2C 48.0 ml LV SV BP 42.9 ml LV CO A4C 2.4 L/min LV CO A2C 3.2 L/min LV CO BP 2.8 L/min HR A4C 64.87 BPM HR A2C 67.04 BPM LV EDV Index (BP) LV Strain Long Pk Overal Avg (s) 15.52 LA Volume LA Length A4C 5.1 cm LA Length A2C 4.6 cm LA Area A4C s 12.68 cm2 LA Area A2C s 13.85 cm2 LA Vol A4C A-L 26.59 mL LA Vol A2C A-L 35.51 mL LA Vol Biplane A-L 32.5 mL LA Vol/BSA A4C A-L LA Vol/BSA A2C A-L LA Vol/BSA BP A-L 17.8 mL/m2 LA Vol A4C MOD 23.4 mL LA Vol A2C MOD 32.1 mL LA Vol BP MOD 28.8 mL RA Volume RA Area A4C 9.5 cm2 RA ESV A4C (A-L) 17.9mL RA Vol/BSA A4C A-L RA Length A4C 4.3 cm RA ESV A4C (MOD) 17.1mL LV Diastology MV E' medial 0.078 (>0.07 m/s) MV E Vmax 0.67 (0.4-1.3 m/s) MV E/E' MED 8.54 (<14) MV A Vmax 0.75 (0.4-1.3 m/s) MV E' lateral 0.098 (>0.1 m/s) E/A Ratio 0.9 MV E/E' LAT 6.80 (<14) MV E' Average 0.088 m/s MV E/E'(average) 7.58 Aortic Valve AoV Vmax 1.50 m/s LVOT Vmax 1.12 m/s AoV Peak Grad 9.0 mmHg LVOT Peak Grad 5.0 mmHg AoV Area (Vmax) 2.09 cm2 LVOT VTI 0.201 m AoV VTI 0.288 m LVOT Mean Grad 2.9 mmHg AoV Mean Jose Ramon. 1.05 m/s LVOT SV 56.48 mL AoV Mean Grad 5.1 mmHg LVOT Diam s 1.85 cm AoV Area (VTI) 1.96 cm2 AV Regurg Peak Gr. 9.04 mmHg Velocity Ratio 0.75 Mitral Valve MV DT 179 (160-240 msec) MV Vmax TIPS 0.71 m/s MV Mean Grad 0.8 (<2mmHg) MV VTI 0.204 m Pulmonary Valve PV Vmax 1.00 (0.5-1.5 m/s) RVOT Vmax 0.65 m/s PV Peak Grad 4.0 mmHg RVOT Peak Gr. 1.7 mmHg PV Mean Jose Ramon 0.68 m/s RVOT VTI 0.151 m PV Mean Grad 2.1 mmHg RVOT Mean Gr. 1.0 mmHg Tricuspid Valve RA Pressure 3.00 mmHg TR Vmax 1.86 m/s TV S' 0.11 m/s TR Peak Grad 13.8 mmHg RVSP (TR) 16.8 mmHg
== END 2025-04-30 02:26 ==
LOC: DI 02:06
PROVIDERS: PCP Internal Medicine Medical Oncology; Visit Provider Internal Medicine Cardiovascular Disease
DX: C50.812 Malignant neoplasm of overlapping sites of left female breast (principal); Z17.0 Estrogen receptor positive status [ER+]; I34.0 Nonrheumatic mitral (valve) insufficiency
CPT/HCPCS: 93306

== ENCOUNTER 2025-05-03 00:57 | Outpatient (RCR) | payer OTHER, SELFPAY ==
[2025-04-10] MEDS: Normal Saline-STERILE FIELD 0.9% 10 ML SYR (10:06)
== END 2025-05-05 23:59 | disposition home or self-care (01) ==
LOC: INF 00:57
PROVIDERS: PCP Internal Medicine Medical Oncology; Visit Provider Internal Medicine Medical Oncology
DX: C50.812 Malignant neoplasm of overlapping sites of left female breast (principal)
CPT/HCPCS: 36591; 96523

== ENCOUNTER 2025-05-31 00:18 | Outpatient (RCR) | payer OTHER, SELFPAY ==
[2025-05-10] MEDS: Normal Saline-STERILE FIELD 0.9% 10 ML SYR (09:33)
[2025-05-10 09:53] LABS: Abs Immature Grans 0.02 10^3/uL (0.0-0.06); HCT 32.8 % (36.0-46.0); HGB 10.0 g/dL (11.2-15.7); Immature Grans % 0.3 %; MCH 27.7 pg (27.0-33.0); MCHC 30.5 % (32.0-36.0); MCV 91 fL (80-95); MPV 9.9 fL (8.0-11.0); Platelet Count 585 10^3/uL (130-400); RBC 3.61 10^6/uL (3.93-5.22); RDW 18.8 % (11.7-14.6); RDW-SD 63.7 fL; WBC 7.38 10^3/uL (4.4-10.8)
[2025-05-10 10:18] LABS: ALT 41 U/L (14-59); AST 65 U/L (15-37); Albumin 2.4 g/dL (3.4-5.0); Alkaline Phosphatase 433 U/L (46-116); Anion Gap 9.8 mmol/L (3-11); BUN 5 mg/dL (7-18); Bilirubin, Total 0.2 mg/dL (0.2-1.0); CO2 28.2 mmol/L (21.0-32.0); Calcium 9.0 mg/dL (8.5-10.1); Chloride 105 mmol/L (98-107); Glucose 159 mg/dL (74-106); Magnesium 1.9 mg/dL (1.8-2.4); Potassium 3.1 mmol/L (3.5-5.1); Sodium 143 mmol/L (136-145); Total Protein 6.3 g/dL (6.4-8.2)
[2025-05-31] MEDS: Normal Saline-STERILE FIELD 0.9% 10 ML SYR (09:19)
[2025-05-31 09:34] LABS: Abs Immature Grans 0.01 10^3/uL (0.0-0.06); HCT 33.2 % (36.0-46.0); HGB 10.2 g/dL (11.2-15.7); Immature Grans % 0.2 %; MCH 27.1 pg (27.0-33.0); MCHC 30.7 % (32.0-36.0); MCV 88 fL (80-95); MPV 10.2 fL (8.0-11.0); Platelet Count 513 10^3/uL (130-400); RBC 3.76 10^6/uL (3.93-5.22); RDW 18.9 % (11.7-14.6); RDW-SD 61.5 fL; WBC 5.27 10^3/uL (4.4-10.8)
[2025-05-31 09:49] LABS: ALT 41 U/L (14-59); AST 66 U/L (15-37); Albumin 2.9 g/dL (3.4-5.0); Alkaline Phosphatase 492 U/L (46-116); Anion Gap 12.2 mmol/L (3-11); BUN 4 mg/dL (7-18); Bilirubin, Total 0.3 mg/dL (0.2-1.0); CO2 25.8 mmol/L (21.0-32.0); Calcium 9.3 mg/dL (8.5-10.1); Chloride 105 mmol/L (98-107); Glucose 118 mg/dL (74-106); Magnesium 1.9 mg/dL (1.8-2.4); Potassium 3.8 mmol/L (3.5-5.1); Sodium 143 mmol/L (136-145); Total Protein 6.9 g/dL (6.4-8.2)
== END 2025-06-04 23:59 | disposition home or self-care (01) ==
LOC: INF 00:18
PROVIDERS: PCP Internal Medicine Medical Oncology; Visit Provider Nurse Practitioner Family
DX: Z45.2 Encounter for adjustment and management of vascular access device (principal); C79.51 Secondary malignant neoplasm of bone; C78.7 Secondary malignant neoplasm of liver and intrahepatic bile duct; C50.812 Malignant neoplasm of overlapping sites of left female breast; Z17.0 Estrogen receptor positive status [ER+]; E83.42 Hypomagnesemia; E87.6 Hypokalemia
CPT/HCPCS: 36591; 80053; 83735; 85025

== ENCOUNTER 2025-06-21 00:11 | Outpatient (RCR) | payer OTHER, SELFPAY ==
[2025-06-21] MEDS: Normal Saline-STERILE FIELD 0.9% 10 ML SYR (12:50)
[2025-06-21 13:15] LABS: Abs Immature Grans 0.04 10^3/uL (0.0-0.06); HCT 34.8 % (36.0-46.0); HGB 10.9 g/dL (11.2-15.7); Immature Grans % 0.7 %; MCH 27.4 pg (27.0-33.0); MCHC 31.3 % (32.0-36.0); MCV 87 fL (80-95); MPV 10.7 fL (8.0-11.0); Platelet Count 545 10^3/uL (130-400); RBC 3.98 10^6/uL (3.93-5.22); RDW 19.4 % (11.7-14.6); RDW-SD 61.5 fL; WBC 6.11 10^3/uL (4.4-10.8)
[2025-06-21 13:43] LABS: ALT 47 U/L (14-59); AST 82 U/L (15-37); Albumin 2.8 g/dL (3.4-5.0); Alkaline Phosphatase 579 U/L (46-116); Anion Gap 11.2 mmol/L (3-11); BUN 6 mg/dL (7-18); Bilirubin, Total 0.2 mg/dL (0.2-1.0); CO2 26.8 mmol/L (21.0-32.0); Calcium 9.2 mg/dL (8.5-10.1); Chloride 105 mmol/L (98-107); Glucose 140 mg/dL (74-106); Magnesium 1.7 mg/dL (1.8-2.4); Potassium 3.5 mmol/L (3.5-5.1); Sodium 143 mmol/L (136-145); Total Protein 6.8 g/dL (6.4-8.2)
== END 2025-07-05 23:59 | disposition home or self-care (01) ==
LOC: INF 00:11
PROVIDERS: PCP Internal Medicine Medical Oncology; Visit Provider Nurse Practitioner Family
DX: Z45.2 Encounter for adjustment and management of vascular access device (principal); C79.51 Secondary malignant neoplasm of bone; C78.7 Secondary malignant neoplasm of liver and intrahepatic bile duct; C50.812 Malignant neoplasm of overlapping sites of left female breast; Z17.0 Estrogen receptor positive status [ER+]
CPT/HCPCS: 36591; 80053; 83735; 85025

== ENCOUNTER 2025-07-12 00:52 | Outpatient (RCR) | payer OTHER, SELFPAY ==
[2025-07-12] MEDS: Normal Saline Flush 10 ML SYR IVP (10:16)
[2025-07-12 10:17] LABS: Abs Immature Grans 0.02 10^3/uL (0.0-0.06); HCT 31.5 % (36.0-46.0); HGB 9.7 g/dL (11.2-15.7); Immature Grans % 0.4 %; MCH 26.0 pg (27.0-33.0); MCHC 30.8 % (32.0-36.0); MCV 85 fL (80-95); MPV 9.8 fL (8.0-11.0); Platelet Count 519 10^3/uL (130-400); RBC 3.73 10^6/uL (3.93-5.22); RDW 20.6 % (11.7-14.6); RDW-SD 62.1 fL; WBC 5.49 10^3/uL (4.4-10.8)
[2025-07-12 10:31] LABS: ALT 37 U/L (14-59); AST 68 U/L (15-37); Albumin 2.5 g/dL (3.4-5.0); Alkaline Phosphatase 453 U/L (46-116); Anion Gap 9.9 mmol/L (3-11); BUN 6 mg/dL (7-18); Bilirubin, Total 0.2 mg/dL (0.2-1.0); CO2 28.1 mmol/L (21.0-32.0); Calcium 8.4 mg/dL (8.5-10.1); Chloride 102 mmol/L (98-107); Estimated GFR 99.57 (mL/min/1.73m2); Glucose 130 mg/dL (74-106); Magnesium 1.5 mg/dL (1.8-2.4); Potassium 3.5 mmol/L (3.5-5.1); Sodium 140 mmol/L (136-145); Total Protein 6.2 g/dL (6.4-8.2)
[2025-07-12 10:40] LABS: Anisocytosis 1+
[2025-07-16 13:01] LABS: Cancer Ag 15-3 540 U/mL (<30)
== END 2025-08-04 23:59 | disposition home or self-care (01) ==
LOC: INF 00:52
PROVIDERS: PCP Internal Medicine Medical Oncology; Visit Provider Nurse Practitioner Family
DX: C50.812 Malignant neoplasm of overlapping sites of left female breast (principal); Z17.0 Estrogen receptor positive status [ER+]; E87.6 Hypokalemia; E83.42 Hypomagnesemia; C79.51 Secondary malignant neoplasm of bone; C78.7 Secondary malignant neoplasm of liver and intrahepatic bile duct; Z45.2 Encounter for adjustment and management of vascular access device
CPT/HCPCS: 36591; 80053; 86300; 96523; 83735; 85025